=== PATIENT | male | born 1990 | race African-American/Black ===

== ENCOUNTER 2020-07-25 14:10 | Outpatient (REF) | payer OTHER, SELFPAY | END 2020-07-25 14:11 | disposition home or self-care (01) | LOC: HO.LAB 14:10 | PROVIDERS: PCP Internal Medicine Geriatric Medicine; Visit Provider Internal Medicine | DX: Z20.828 Contact with and (suspected) exposure to other viral communicable diseases (principal) | CPT/HCPCS: C9803; U0003 ==

== ENCOUNTER 2020-09-17 08:02 | Outpatient (REF) | payer OTHER, SELFPAY ==
--- NOTE | 2020-09-18 09:02 | MHC.AU.P13 ---
Adult Audiological Evaluation Date of Visit: 09/17/20 Quantitative Consultant Used: Not Applicable Reason for Appointment: Audiologic evaluation due to question of hearing loss, left ear poorer than right and difficulty understanding speech, particularly when background noise is present. Delilah reports he has some difficulty with attention and anxiety and wonders if these factors may increase his hearing trouble. He also experiences intermittent ear pain and blocked sensation, right ear greater than left. He has had 2 episodes of swelling and cyst in the ear canal which required drainage and seem related to throat infections. Delilah notes he has not been evaluated by an Direct Mail Coordinator. Does patient feel they have a hearing loss?: Yes If Yes, Which Ear?: Both Ears When Was Hearing Difficulty First Noticed?: 1-2 years Has hearing been tested previously?: No Hearing Handicap Inventory HHIE SCORE: 14 Based on HHIE score, patient has: Mild to moderate perceived hearing handicap Ear History: Recent Ear Pain: Both Ears Blocked/Full Sensation in Ear(s): Left Ear History of occupational noise exposure?: Yes: [employer]an History: History: No Medical History: Medical History: None reported Medication List: None Otoscopy: Right Ear: Unremarkable Left Ear: Unremarkable Tympanometry: Right Ear: Normal Middle Ear System (Type A) Left Ear: Normal Middle Ear System (Type A) Otoacoustic Emissions Frequency Range Used: 1.6-8 kHz Right Ear Results: Present Emissions Analysis: Present emissions suggest normal cochlear function Rules out peripheral hearing loss greater than a mild degree Left Ear Results: Present Emissions Analysis: Present emissions suggest normal cochlear function Rules out peripheral hearing loss greater than a mild degree Hearing Evaluation: Transducer(s) Used: Insert Earphones Bone Conduction Method: Conventional Audiometry Stimuli Used: Pure Tones Right Ear: Description of Hearing: Normal hearing thresholds at 250-8000 Hz Left Ear: Description of Hearing: Normal hearing thresholds at 250-8000 Hz Speech Recognition Threshold (SRT): Method Used: Monitored Live Voice Stimuli Used: Spondee Words Right Ear: 10 dB HL Left Ear: 10 dB HL Word Discrimination: Method: Recorded Lists Word Lists Used: NU-6 Right Ear: 100% at 50 dB HL Left Ear: 96% at 50 dB HL QuickSIN: Right Ear: 4 dB SNR Loss Mild degree of difficulty understanding speech with increasing levels of background noise Left Ear: 2 dB SNR Loss Within the normal limits. IT IS NOTED THE SCORE FOR THE RIGHT EAR MAY BE ELEVATED IT WAS THE FIRST EAR TO BE TESTED AND DELILAH REPORTS HE HAD MORE DIFFICULTY PAYING ATTENTION TO THE SENTENCES TO REPEAT. HE WAS MORE FAMILIAR WITH THE LISTENING TASK WHEN THE LEFT EAR WAS TESTED AND HE WAS ABLE TO PAY CLOSER ATTENTION TO THE LISTENING TASK. Comparison: Compared to the most recent evaluation: N/A Recommendations: Recommendations: No further audiological action is indicated at this time. Recommendations (Other): 1) Discussed that Delilah' peripheral hearing is normal for both ears; however, listening skills may be affected by reduced attention as well as emotional state. If Delilah is anxious, listening becomes more difficult. Delilah reports he has already planed to seek therapy for his attention and anxiety. 2) Discussed and provided a handout regarding Communication Strategies to use as needed to improve speech understanding. 3) Advise considering a consultation with an Direct Mail Coordinator for the history of throat and ear swelling, particularly if the problem occurs again. Diagnosis: Primary Diagnosis: H93.293 (Concern of) Abnormal Auditory Perception Secondary Diagnosis: Services Performed: Services Performed: Comprehensive Audiological Evaluation (CPT 14933) Diagnostic Otoacoustic Emissions (CPT 08966, 26+TC) Tympanometry (CPT 88679) Signature: Provider: Naima Stewart, CCC-A
== END 2020-09-17 08:03 | disposition home or self-care (01) ==
LOC: HO.SH 08:02
PROVIDERS: Visit Provider Physician Assistant
DX: H93.293 Other abnormal auditory perceptions, bilateral (principal)
CPT/HCPCS: 92557; 92567; 92588

== ENCOUNTER 2020-09-17 09:15 | Outpatient (REF) | payer OTHER, SELFPAY ==
[2020-09-17 09:59] LABS: Alanine Aminotransferase 36 U/L (0-40); Albumin Level 4.8 g/dL (3.5-5.0); Alkaline Phosphatase 66 U/L (39-117); Anion Gap 13 (12-20); Aspartate Amino Transferase 19 U/L (5-37); Bilirubin Total 0.9 mg/dL (0.0-1.0); Blood Urea Nitrogen 14 mg/dL (9-16); Calcium 9.7 mg/dL (8.4-10.2); Carbon Dioxide 30 mmol/L (22-29); Chloride 103 mmol/L (96-108); Estimated Glomerular Filt Rate > 60; Glucose Fasting 95 mg/dL (60-99); Potassium 4.5 mmol/l (3.3-5.1); Sodium 141 mmol/L (135-145); Total Protein 7.7 g/dL (6.5-8.0)
[2020-09-17 10:16] LABS: Estimated Average Glucose 103 mg/dL; Hemoglobin A1c % 5.2 %
[2020-09-17 10:23] LABS: TSH reflex Free T4 1.21 mIU/mL (0.32-4.0)
== END 2020-09-17 09:16 | disposition home or self-care (01) ==
LOC: HO.LAB 09:15
PROVIDERS: Visit Provider Physician Assistant
DX: Z13.1 Encounter for screening for diabetes mellitus (principal); Z13.29 Encounter for screening for other suspected endocrine disorder
CPT/HCPCS: 36415; 80053; 83036; 84443

== ENCOUNTER 2020-11-15 11:15 | Outpatient (REF) | payer OTHER, SELFPAY ==
--- NOTE | ~2020-11-15 | XR_ITS ---
EXAMINATION: XR CHEST CLINICAL INFORMATION: Chest pain COMPARISON: Chest 12/19/2008 TECHNIQUE: 2 views of the chest were obtained. FINDINGS: No significant abnormality is noted involving the heart, lungs, mediastinum, bony thorax or soft tissues. XR/XR chest 2V IMPRESSION: Unremarkable chest examination.
== END 2020-11-15 11:16 | disposition home or self-care (01) ==
LOC: HO.HMGCX 11:15
PROVIDERS: PCP Physician Assistant; Visit Provider Hospitalist
DX: R07.9 Chest pain, unspecified (principal)
CPT/HCPCS: 71046

== ENCOUNTER 2021-04-19 16:20 | Outpatient (REF) | payer OTHER, SELFPAY | END 2021-04-19 16:21 | disposition home or self-care (01) | LOC: HO.LNP 16:20 | PROVIDERS: Visit Provider Hospitalist | DX: Z20.822 Contact with and (suspected) exposure to COVID-19 (principal); B34.9 Viral infection, unspecified | CPT/HCPCS: U0003; U0005 ==

== ENCOUNTER 2022-01-29 08:56 | Outpatient (REF) | payer OTHER, SELFPAY ==
[2022-01-29 09:38] LABS: Hematocrit 43.6 % (42.0-52.0); Hemoglobin 14.9 g/dl (14.0-18.0); Mean Corpuscular HGB Conc 34.2 g/dl (31.0-36.0); Mean Corpuscular Hemoglobin 29.2 pg (27.0-33.0); Mean Corpuscular Volume 85.5 fL (80.0-98.0); Platelet Count 247 X10*3/uL (160-400); Red Cell Distribution Width 12.1 % (11.0-16.0)
[2022-01-29 10:13] LABS: Alanine Aminotransferase 41 U/L (0-40); Albumin Level 4.6 g/dL (3.5-5.0); Alkaline Phosphatase 60 U/L (39-117); Anion Gap 10 (12-20); Aspartate Amino Transferase 21 U/L (5-37); Bilirubin Total 0.7 mg/dL (0.0-1.0); Blood Urea Nitrogen 11 mg/dL (9-16); Calcium 9.5 mg/dL (8.4-10.2); Carbon Dioxide 29 mmol/L (22-29); Chloride 104 mmol/L (96-108); Cholesterol 204 mg/dL; Estimated Glomerular Filt Rate > 60; Glucose Fasting 92 mg/dL (60-99); HDL Cholesterol 54 mg/dL; LDL Cholesterol Calculated 134 mg/dl; Potassium 4.2 mmol/L (3.3-5.1); Sodium 139 mmol/L (135-145); Total Protein 7.3 g/dL (6.5-8.0); Triglycerides 83 mg/dL
== END 2022-01-29 08:57 | disposition home or self-care (01) ==
LOC: HO.LAB 08:56
PROVIDERS: PCP Physician Assistant; Visit Provider Physician Assistant
DX: Z13.1 Encounter for screening for diabetes mellitus (principal); Z13.29 Encounter for screening for other suspected endocrine disorder
CPT/HCPCS: 36415; 80053; 80061; 84443; 85027

== ENCOUNTER 2022-10-24 10:01 | Emergency (ER) | payer OTHER, SELFPAY ==
--- NOTE | ~2022-10-24 | XR_ITS ---
EXAMINATION: XR CHEST CLINICAL INFORMATION: Chest pain, high blood pressure. COMPARISON: 11/15/2020 chest radiographs. TECHNIQUE: 2 views of the chest were obtained. FINDINGS: No significant abnormality is noted involving the heart, lungs, mediastinum, bony thorax or soft tissues. XR/XR chest 2V IMPRESSION: No acute cardiopulmonary process.
--- NOTE | 2022-10-24 10:03 | ECG_ITS ---
Test Reason : CHEST PAIN Blood Pressure : / mmHG Vent. Rate : 096 BPM Atrial Rate : 096 BPM P-R Int : 158 ms QRS Dur : 092 ms QT Int : 332 ms P-R-T Axes : 045 013 026 degrees QTc Int : 419 ms Normal sinus rhythm Normal ECG When compared with ECG of 20-MAY-2011 14:29, Nonspecific T wave abnormality now evident in Inferior leads T wave amplitude has decreased in Lateral leads Referred By: Generic ED Physician Electronically Signed By:LISA DORAN MD
[2022-10-24 10:12] VITALS: BP 148/95; PULSE 91; RESP 16; TEMP 36.1; O2SAT 98; BMI 30.8
[2022-10-24 10:30] VITALS: BP 146/78; PULSE 92; RESP 15; TEMP 36.8; O2SAT 99
[2022-10-24 10:41] LABS: MANUAL DIFF FLAG NO
[2022-10-24 10:44] LABS: Basophils Absolute Auto 0.1 X10*3/uL (0.0-0.2); Basophils Percent Auto 0.7 % (0-2); Eosinophils Absolute Auto 0.2 X10*3/uL (0.0-0.4); Eosinophils Percent Auto 2.9 % (0-4); Hematocrit 43.8 % (42.0-52.0); Hemoglobin 15.4 g/dl (14.0-18.0); Imm Gran Abs Auto 0.03 X10*3/uL (0.00-0.03); Imm Gran Pct Auto 0.4 % (0.0-0.4); Lymphocytes Absolute Auto 1.8 X10*3/uL (1.2-4.9); Lymphocytes Percent Auto 23.9 % (20-40); Mean Corpuscular HGB Conc 35.2 g/dl (31.0-36.0); Mean Corpuscular Hemoglobin 29.6 pg (27.0-33.0); Mean Corpuscular Volume 84.2 fL (80.0-98.0); Mean Platelet Volume 9.7 fL (9.4-12.4); Monocytes Absolute Auto 0.7 X10*3/uL (0.1-1.2); Monocytes Percent Auto 9.2 % (2-11); Neutrophils Absolute Auto 4.7 x10*3/uL (2.0-8.3); Neutrophils Percent Auto 62.9 % (45-73); Platelet Count 269 X10*3/uL (160-400); Red Cell Distribution Width 12.4 % (11.0-16.0); White Blood Count 7.5 X10*3/uL (4.8-10.8)
--- NOTE | 2022-10-24 10:57 | ED.CHESTPAIN ---
HPI - Chest Pain General Chief Complaint: Chest Pain Stated Complaint: chest pain, high bp Time Seen by Provider: 10/24/22 10:33 Source: patient Mode of arrival: ambulatory History of Present Illness HPI narrative: 32-year-old male with no significant past medical history presenting to the ED complaining of intermittent sharp chest pain x2 weeks with elevated BP on home machine. States woke up this morning with chest pain, blood pressure noted to be 170s/130s. Reports intermittent lightheadedness at work. Denies symptoms at present. Denies headache, vision change/loss, SOB, abdominal pain, nausea/vomiting, pedal edema, recent travel. Denies history of hypertension, not currently on any medications MD complaint: chest pain Related Data Home Medications Medication Instructions Recorded Confirmed No Known Home Meds 04/01/22 04/01/22 Allergies Allergy/AdvReac Type Severity Reaction Status Date / Time No Known Allergies Allergy Verified 04/01/22 11:31 [No Known Allergies*] Review of Systems Review of Systems: Constitutional: No Fever, No Chills, No Fatigue, No Malaise ENT/Mouth: No Ear Pain, No Nasal Congestion, No sore throat, No Rhinorrhea, No Swallowing Difficulty Eyes: No Eye Pain, No Swelling, No Redness, No Vision Changes Cardiovascular: + intermittent Chest Pain, No SOB,No Edema, No Palpitations Respiratory: No Cough, No Sputum, No Dyspnea Gastrointestinal: No Nausea, No Vomiting, No Diarrhea, No Constipation, No Abdominal pain Genitourinary: No Dysuria, No Urinary Frequency, No Hematuria, No Flank Pain Musculoskeletal: No joint pain, No Myalgias, No Joint Swelling Skin: No Skin Lesions, No rash Neuro: No Weakness, No Loss of Consciousness, + intermittent lightheadedness, No Headache Yes all other systems are reviewed and are negative Constitutional: Constitutional: Reports as per [facility] Past Medical History Attestation statement: The following information was validated with the patient. 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 - [employer] Cognitive needs: No Hearing needs: No Vision needs: Yes Physical Exam Vital Signs: Vital Signs: Last Vital Signs Temp 98.2 F 10/24/22 10:30 Pulse 71 10/24/22 14:33 Resp 13 10/24/22 14:33 BP 133/86 10/24/22 14:33 Pulse Ox 99 10/24/22 14:33 O2 Del Method 10/24/22 14:33 BMI result Body Mass Index 30.8 Const: General: cooperative, healthy appearing and no acute distress Orientation/consciousness: patient oriented x3 Limitations: no limitations HEENT: Head: Yes normal to inspection and Yes atraumatic Ears: hearing grossly normal bilaterally General nose exam: Normal external nose present Face and sinus: Yes normal facial exam Eyes: General: appearance normal, both eyes and all related structures EOM: EOMs intact bilaterally Neck: Neck: Yes normal visual inspection and Yes no meningeal signs Resp: Effort & Inspection: normal respiratory effort and no respiratory distress Auscultation: clear to auscultation bilaterally and no wheezes Cardio: Rate: regular rate Heart sounds: S1 normal heart sound present and S2 normal heart sound present GI: Inspection: Yes normal to inspection Palpation (GI): Soft to palpation, nontender, no guarding and not rigid : General: Yes no CVA tenderness Back/Spine/Pelvis: Back: no CVA tenderness Skin: Rashes: no rashes Wounds: no wounds Neuro: General: patient oriented x3, tone normal and no meningeal signs Gait exam (Neuro): Normal gait present Extrem: General: Yes normal to inspection, Yes no pedal edema and Yes no calf tenderness Course Course Course Narrative: -labs reassuring. Troponin x2 negative -CXR unremarkable Results discussed with patient including worrisome signs and symptoms and strict return precautions, and when to return to the emergency department. They verbalized understanding and feel safe for discharge at this time. Medical Decision Making Medical Decision Making MDM Narrative: 32-year-old male with no significant past medical history presenting to the ED complaining of intermittent sharp chest pain x2 weeks with elevated BP on home machine. On exam vital signs stable, blood pressure 148/95 on arrival. asymptomatic at present. Lungs CTA, no pedal edema/calf tenderness. Symptoms atypical for ACS/PE. Will rule out arrhythmia or thyroid dysfunction. Possible anxiety. Lower suspicion for infectious etiology Plan: EKG, labs, CXR, orthostatics, re-evaluate Please refer to course for remaining clinical decision making, interpretation of labs/imaging results, and discussions with consultants and/or family members. Differential Diagnosis Differential Diagnoses: The differential diagnosis associated with the presentation includes As above Lab Data MDM Lab Attestation statement: I reviewed the patient's lab results. 10/24/22 10:38 10/24/22 10:38 Labs: Lab Results 10/24/22 10/24/22 10/24/22 Range/Units 10:38 10:38 10:38 WBC 7.5 (4.8-10.8) X10*3/uL RBC 5.20 (4.60-5.80) X10*6/uL Hgb 15.4 (14.0-18.0) g/dl Hct 43.8 (42.0-52.0) % MCV 84.2 (80.0-98.0) fL MCH 29.6 (27.0-33.0) pg MCHC 35.2 (31.0-36.0) g/dl RDW 12.4 (11.0-16.0) % Plt Count 269 (160-400) X10*3/uL MPV 9.7 (9.4-12.4) fL Immature Gran % (Auto) 0.4 (0.0-0.4) % Neut % (Auto) 62.9 (45-73) % Lymph % (Auto) 23.9 (20-40) % [place] % (Auto) 9.2 (2-11) % Eos % (Auto) 2.9 (0-4) % Baso % (Auto) 0.7 (0-2) % Lymph # (Auto) 1.8 (1.2-4.9) X10*3/uL [place] # (Auto) 0.7 (0.1-1.2) X10*3/uL Eos # (Auto) 0.2 (0.0-0.4) X10*3/uL Baso # (Auto) 0.1 (0.0-0.2) X10*3/uL Abs Immat Gran (auto) 0.03 (0.00-0.03) X10*3/uL Absolute Neuts (auto) 4.7 (2.0-8.3) x10*3/uL Absolute Nucleated RBC 0.000 (0.0-0.012) X10*3/uL Nucleated RBC % (auto) 0.0 (0.0-0.2) /100WBC Sodium 140 (135-145) mmol/L Potassium 3.8 (3.3-5.1) mmol/L Chloride 106 (96-108) mmol/L Carbon Dioxide 25 (22-29) mmol/L Anion Gap 13 (12-20) BUN 13 (9-16) mg/dL Creatinine 0.85 (0.5-1.4) mg/dL Estim Creat Clear Calc 147.7 Estimated GFR > 60 Random Glucose 100 (60-115) mg/dL Calcium 9.2 (8.4-10.2) mg/dL Total Bilirubin 0.5 (0.0-1.0) mg/dL AST 32 (5-37) U/L ALT 64 H (0-40) U/L Alkaline Phosphatase 72 (39-117) U/L Troponin I High Sens 3.8 (<3.5-35.0) ng/L Total Protein 7.3 (6.5-8.0) g/dL Albumin 4.4 (3.5-5.0) g/dL TSH 1.32 (0.32-4.0) uIU/mL 10/24/22 Range/Units 13:28 WBC (4.8-10.8) X10*3/uL RBC (4.60-5.80) X10*6/uL Hgb (14.0-18.0) g/dl Hct (42.0-52.0) % MCV (80.0-98.0) fL MCH (27.0-33.0) pg MCHC (31.0-36.0) g/dl RDW (11.0-16.0) % Plt Count (160-400) X10*3/uL MPV (9.4-12.4) fL Immature Gran % (Auto) (0.0-0.4) % Neut % (Auto) (45-73) % Lymph % (Auto) (20-40) % [place] % (Auto) (2-11) % Eos % (Auto) (0-4) % Baso % (Auto) (0-2) % Lymph # (Auto) (1.2-4.9) X10*3/uL [place] # (Auto) (0.1-1.2) X10*3/uL Eos # (Auto) (0.0-0.4) X10*3/uL Baso # (Auto) (0.0-0.2) X10*3/uL Abs Immat Gran (auto) (0.00-0.03) X10*3/uL Absolute Neuts (auto) (2.0-8.3) x10*3/uL Absolute Nucleated RBC (0.0-0.012) X10*3/uL Nucleated RBC % (auto) (0.0-0.2) /100WBC Sodium (135-145) mmol/L Potassium (3.3-5.1) mmol/L Chloride (96-108) mmol/L Carbon Dioxide (22-29) mmol/L Anion Gap (12-20) BUN (9-16) mg/dL Creatinine (0.5-1.4) mg/dL Estim Creat Clear Calc Estimated GFR Random Glucose (60-115) mg/dL Calcium (8.4-10.2) mg/dL Total Bilirubin (0.0-1.0) mg/dL AST (5-37) U/L ALT (0-40) U/L Alkaline Phosphatase (39-117) U/L Troponin I High Sens 3.6 (<3.5-35.0) ng/L Total Protein (6.5-8.0) g/dL Albumin (3.5-5.0) g/dL TSH (0.32-4.0) uIU/mL Independent Interpretation I performed an independent interpretation of an: EKG Interpretation: My interpretation EKG normal sinus rhythm at rate 96. CT interval 158. QTC 419. No STEMI. Radiology Impression Discussion of test interpretation with radiology: I have reviewed the radiologist's reading. External Record Review External record reviewed: Office record and Outpatient record Discharge Plan Discharge Clinical Impression: Atypical chest pain Patient Disposition: Home, Self-Care Instructions: Chest Pain (DC) Additional Instructions: Your blood work was reassuring. x-ray was unremarkable Please follow-up with your primary care doctor and Cardiology Continue home prescribed medications Continue to monitor your blood pressure at home If you develop constant/worsening chest pain, shortness of breath, persistent high blood pressure/headache return to the ED Prescriptions: No Action No Known Home Meds [place] [facility] [place] [place] Group[place] - 1 week Anmol Hudson PA-C [Primary Care Provider] - 2 days Stand Alone Forms: Work/School Release Interventions: ED Discharge Assessment Last Done: 10/24/22 14:33 Discharge Date/Time: 10/24/22 14:34
[2022-10-24 11:01] LABS: Alanine Aminotransferase 64 U/L (0-40); Albumin Level 4.4 g/dL (3.5-5.0); Alkaline Phosphatase 72 U/L (39-117); Anion Gap 13 (12-20); Aspartate Amino Transferase 32 U/L (5-37); Bilirubin Total 0.5 mg/dL (0.0-1.0); Blood Urea Nitrogen 13 mg/dL (9-16); Calcium 9.2 mg/dL (8.4-10.2); Carbon Dioxide 25 mmol/L (22-29); Chloride 106 mmol/L (96-108); Creatinine Clr Calc Pharmacy 147.7; Estimated Glomerular Filt Rate > 60; Glucose Random 100 mg/dL (60-115); Potassium 3.8 mmol/L (3.3-5.1); Sodium 140 mmol/L (135-145); Total Protein 7.3 g/dL (6.5-8.0)
[2022-10-24 11:11] LABS: Troponin-I High Sensitivity 3.8 ng/L (<3.5-35.0)
[2022-10-24 12:11] LABS: TSH reflex Free T4 1.32 uIU/mL (0.32-4.0)
[2022-10-24 12:40] VITALS: BP 127/72; PULSE 75; RESP 19; O2SAT 100
[2022-10-24 12:46] VITALS: BP 116/73; PULSE 66
[2022-10-24 12:47] VITALS: BP 132/84; BP 139/91; PULSE 63; PULSE 66
[2022-10-24 14:07] LABS: Troponin-I High Sensitivity 3.6 ng/L (<3.5-35.0)
[2022-10-24 14:33] VITALS: BP 133/86; PULSE 71; RESP 13; O2SAT 99
== END 2022-10-24 14:34 | disposition home or self-care (01) ==
PROVIDERS: Physician Assistant; Emergency Provider Emergency Medicine Emergency Medical Services; PCP Physician Assistant
DX: R07.89 Other chest pain (principal); R03.0 Elevated blood-pressure reading, without diagnosis of hypertension; Z79.899 Other long term (current) drug therapy
CPT/HCPCS: 36415; 71046; 80053; 84443; 84484; 85025; 93005; 99283; 99284

== ENCOUNTER 2023-05-04 10:37 | Outpatient (AMB) | payer OTHER, SELFPAY ==
--- NOTE | 2023-05-04 10:56 | AM.OFFWIN_ITS ---
Intake Vital Signs 05/04/23 11:09 Height 5 ft 11 in Weight 232 lb BMI 32.4 BP 132/72 Blood Pressure Location Rt brachial Position Sitting Pulse 88 Pulse Source Pulse Oximeter Temp 97.2 F Temp Source Temporal Artery Scan Pulse Oximetry (%) 98 Intake Visit Reasons: EST/ear infections [phone] Intake Note: pt is here for possible ear infection Patient Tobacco Use Status: Never used Tobacco Allergies No Known Allergies [No Known Allergies*] Allergy (Verified 05/04/23 11:10) Do you need a note to return to daycare/school/sports/work: Yes HPI EST/ear infections [phone] HPI Details 33-year-old male patient presents today with right ear pain since last week. Denies any fever or chills. Denies any other URI symptoms. Had an ear infection last year, this feels similar. 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 - [employer] Cognitive needs: No Hearing needs: No Vision needs: Yes (glasses) Review of Systems Const All systems reviewed & are unremarkable except as noted in HPI and below Physical Exam Vital Signs: Last Vital Signs Temp 97.2 F 05/04/23 11:09 Pulse 88 05/04/23 11:09 BP 132/72 05/04/23 11:09 Pulse Ox 98 05/04/23 11:09 BMI result Body Mass Index 32.4 Const General: cooperative, healthy appearing, comfortable and no acute distress HEENT Head: Yes normal to inspection Ears: hearing grossly normal bilaterally, external ear abnormal (erythema) auricular tenderness on the right and pain with movement of external ear on the right and TM abnormal (right TM Bulging, erythematous, purulent effusion) Neck Neck: Yes no lymphadenopathy Resp Effort & Inspection: normal respiratory effort and able to speak in complete sentences Auscultation: clear to auscultation bilaterally Skin General skin exam: no rashes or lesions noted Extrem General: Yes capillary refill normal and Yes no clubbing, cyanosis or edema Psych Appearance: grossly normal Mental Status: mental status grossly normal Speech and movement: Normal speech and movement present Assessment & Plan Assessment & Plan (1) Right otitis media with effusion: Code(s): H65.91 - Unspecified nonsuppurative otitis media, right ear Plan: Will start patient on Augmentin for right OM, and also given effusion and erythema of ear canal, will start on Cipro/dexa ear drops. We reviewed indications, use, possible side effects of medications. Advised to complete full course and return to the clinic or PCP if he does not resolve with treatment, or if new symptoms occur. He agrees to plan. (2) Otitis externa of right ear: Code(s): H60.91 - Unspecified otitis externa, right ear Qualifiers: Otitis externa type: unspecified type Chronicity: acute Qualified Code(s): H60.501 - Unspecified acute noninfective otitis externa, right ear Medications: New amoxicillin-pot clavulanate 875-125 mg 1 tab PO BID 7 days 14 tabs 0RF H65.91 - Unspecified nonsuppurative otitis media, right ear ciprofloxacin-dexamethasone 0.3-0.1 % 4 drps otic (ear) right BID 7 days 7.5 mL 0RF H60.91 - Unspecified otitis externa, right ear Coding Level of Care Code Est Pt Level 3 (63808) Diagnoses Right otitis media with effusion H65.91 Acute otitis externa of right ear, unspecified type H60.501 Otitis externa type: unspecified type Chronicity: acute
[2023-05-04 11:09] VITALS: BP 132/72; PULSE 88; TEMP 36.2; O2SAT 98; BMI 32.4
== END 2023-05-04 11:28 | disposition home or self-care (01) ==
PROVIDERS: PCP Physician Assistant; Visit Provider Nurse Practitioner Family
DX: H65.91 Unspecified nonsuppurative otitis media, right ear (principal); H60.501 Unspecified acute noninfective otitis externa, right ear
CPT/HCPCS: 99213

== ENCOUNTER 2023-06-15 09:52 | Outpatient (AMB) | payer OTHER, SELFPAY ==
[2023-06-15 09:54] VITALS: BP 140/90; PULSE 64; RESP 16; O2SAT 99; BMI 31.7
--- NOTE | 2023-06-15 09:54 | A.OFFPC_ITS ---
Vital Signs 3 06/15/23 09:54 Height 5 ft 11 in Weight 227 lb 8 oz BMI 31.7 BP 140/90 H Blood Pressure Location Lt brachial Position Sitting Respiration 16 Pulse 64 Pulse Source Pulse Oximeter Pulse Oximetry (%) 99 Oxygen Delivery Method Room Air Intake Visit Reasons: Lower Right Side Back Pain Intake Note: Pt is here for lower right side (strain)back pain for more than a month. 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 Accompanied by: Self / Same As Patient Allergies No Known Allergies [No Known Allergies*] Allergy (Verified 06/15/23 10:17) Medication List - Last Reconciled 06/15/23 by Anmol Hudson PA-C No Known Home Meds Tobacco use date assessed: 11/06/22 Dental Screening Dental Screen Date: 06/15/23 Did you have a dental visit in the last 12 months?: Yes Did you have a dental problem in the last 6 months where you did not have access to dental care?: No Was dental information given to patient?: Patient has dentist HPI Lower Right Side Back Pain 2 HPI0 Details Patient is a 33-year-old male here today for problem visit. Patient reports having lower right-sided back pain over the last month. He reports having an abscess formation in the area of his pain in the past that was surgically removed. He reports his pain in this right flank areas worse when sitting in his car driving. Has been using [id number]-kjp-[id number] pain medication without much relief. He also reports having tailbone pain which has been a chronic condition for him. Does use muscle relaxers on a p.r.n. basis which does help. He is willing further evaluation with x-rays into physical therapy. No reported recent trauma to his lower back or pelvis. 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 Leonardo Rutledge, Constance Lynch, Andrea Watters and colleagues, with an educational saturnino from [employer]. Review of Systems Const Denies headache(s) Eyes Denies loss of vision ENT Denies vertigo, Denies dizziness, Denies headache(s) and Denies sore throat Card Reports chest pain, Denies leg edema and Denies lightheadedness Resp Denies cough, Denies hemoptysis and Denies wheezing GI Denies abdominal pain, Denies melena, Denies constipation, Denies diarrhea and Denies vomiting Denies dysuria, Denies urinary frequency and Denies urinary urgency Musc Reports back pain, Denies arthralgias, Denies joint swelling, Denies numbness and Denies tingling Neuro Denies Abnormal speech present, Denies behavioral changes, Denies vertigo, Denies dizziness, Denies headache(s), Denies loss of vision, Denies memory loss, Denies numbness and Denies tingling Psych Denies anxiety, Denies behavioral changes, Denies depression, Denies memory loss and Denies panic attacks Romeo/Lymph Denies easy bleeding and Denies easy bruising Aller/Immun Denies wheezing Physical exam (Primary Care) Vital Signs: Last Vital Signs Pulse 64 06/15/23 09:54 Resp 16 06/15/23 09:54 BP 140/90 H 06/15/23 09:54 Pulse Ox 99 06/15/23 09:54 Oxygen Delivery Method Room Air 06/15/23 09:54 BMI result Body Mass Index 31.7 Tobacco/Smoking Status: Tobacco use Status Tobacco use date assessed 11/06/22 06/15/23 09:54 Patient Tobacco Use Status Never used Tobacco 06/15/23 09:54 e-Cigarette/Vaping Use Never Used 06/15/23 09:54 Thrive Assessment: Date of Thrive Assessment Date Thrive assessed 01/21/23 06/15/23 09:54 Const General: healthy appearing, no acute distress, alert and awake Nutritional Appearance: well nourished Orientation/consciousness: oriented to person, oriented to place and oriented to time HENMT Ears: TM's normal bilaterally General nose exam: Normal nasal mucous membranes and turbinates present Eyes Conjunctivae: conjunctivae normal Sclerae: sclerae normal Pupils: Equal, round and reactive pupils present Neck Neck: Yes no lymphadenopathy and Yes no JVD Thyroid: Thyroid normal Carotids: no bruits Resp Effort & Inspection: normal respiratory effort and not tachypneic Auscultation: no crackles, no rales, no rhonchi and no wheezes Cardio Rate: regular rate Rhythm: regular rhythm Heart sounds: no murmurs and normal S1 and S2 GI Palpation (GI): Soft to palpation, nontender, no hepatomegaly and no splenomegaly Auscultation: normal bowel sounds Back/Spine/Pelvis Back/spine/pelvis image: 2 1. SMALL AREA OF WELL-HEALED SURGICAL SCAR. NO SURROUNDING ERYTHEMA OR DRAINAGE. DOES HAVE SMALL PALPABLE LUMP ? SCAR TISSUE FORMATION Skin General skin exam: no rashes or lesions noted and dry skin Neuro General: oriented to person, oriented to place and oriented to time Cranial nerves: Yes Equal, round and reactive pupils present Speech: No Abnormal speech present Gait exam (Neuro): Normal gait present Motor exam (neuro): no tremor noted Extrem Right upper extremity: full ROM Left upper extremity: full ROM Right lower extremity: full ROM; no edema Left lower extremity: full ROM; no edema Psych Mental Status: mental status grossly normal Speech and movement: Normal speech and movement present Affect: normal affect Attitude: cooperative Thought process: Normal thought process present Office Procedures Flu Questionnaire Does the patient have a severe egg allergy?: No Does the patient have severe life threatening allergies?: No Does the patient have a fever or illness today?: No Has the patient ever had Guillain-Edson Syndrome?: No Has the patient ever had any past reaction to a flu shot?: No Immunizations flu vacc [id number] 6mos up(PF) 60 mcg(15 mcgx4)/0.5 mL IM syringe Performing Provider: Anmol Hudson PA-C Performing Location: [facility] Administered by: CECILE Smith on 06/15/23 10:05 2 Dose Route Admin Location Dispensed Lot Number Expiration Date [facility] Power 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 Likely scar tissue from the surgical procedure . Will get ultrasound of the area to evaluate for any mass or re-formation of abscess. (2) Coxalgia: Code(s): M25.559 - Pain in unspecified hip Qualifiers: Laterality: bilateral Qualified Code(s): M25.551 - Pain in right hip; M25.552 - Pain in left hip Plan: Reports a chronic history of lower tailbone pain. Will get x-ray this region. Will likely benefit from physical therapy. Will use muscle relaxer as needed for pain. Orders: Orders 2 XR sacroiliac joint min 3V Today M25.559 - Pain in unspecified hip Influenza [id number] Immunization Today Z23 - Encounter for immunization US extremity nonvascular snyder Today M25.559 - Pain in unspecified hip, R19.00 - Intra-abdominal and pelvic swelling, mass and lump, unspecified site PT Evaluation and Treatment Today M25.559 - Pain in unspecified hip Medications: New 2 cyclobenzaprine 10 mg PO BEDTIME 15 days PRN 15 tabs 1RF muscle spasm M25.559 - Pain in unspecified hip Coding Level of Care Code Est Pt Level 4 (72549) Diagnoses Right flank mass R19.00 Pain of both hip joints M25.551; M25.552 Laterality: bilateral
== END 2023-06-15 10:32 | disposition home or self-care (01) ==
PROVIDERS: PCP Physician Assistant; Visit Provider Physician Assistant
DX: R19.00 Intra-abdominal and pelvic swelling, mass and lump, unspecified site (principal); M25.551 Pain in right hip; M25.552 Pain in left hip; Z23 Encounter for immunization
CPT/HCPCS: 90471; 90686; 99214

== ENCOUNTER 2023-07-07 13:00 | Outpatient (REF) | payer OTHER, SELFPAY ==
--- NOTE | ~2023-07-07 | US_ITS ---
Examination: Follow-up abscess COMPARISON: None TECHNIQUE: Targeted sonographic evaluation of the soft tissues of right flank posterior FINDINGS: Targeted sonographic evaluation of soft tissues performed and revealed no collections, masses, shadowing and the area pointed by patient has a previous scan abscess. US/US extremity nonvascular snyder IMPRESSION: Negative
== END 2023-07-07 13:01 | disposition home or self-care (01) ==
LOC: HO.US 13:00
PROVIDERS: PCP Physician Assistant; Visit Provider Physician Assistant
DX: R19.00 Intra-abdominal and pelvic swelling, mass and lump, unspecified site (principal)
CPT/HCPCS: 76882

== ENCOUNTER 2023-10-29 11:31 | Outpatient (AMB) | payer OTHER, SELFPAY ==
[2023-10-29 12:57] VITALS: BP 160/80; PULSE 77; TEMP 36.1; O2SAT 97; BMI 31.2
--- NOTE | 2023-10-29 12:57 | AM.OFFWIN_ITS ---
Intake Vital Signs 10/29/23 12:57 Height 5 ft 11 in Weight 224 lb BMI 31.2 BP 160/80 H Blood Pressure Location Lt brachial Position Sitting Pulse 77 Pulse Source Pulse Oximeter Temp 97.0 F Temp Source Temporal Artery Scan Pulse Oximetry (%) 97 Oxygen Delivery Method Room Air Intake Visit Reasons: EST/left shoulder pain X 2 weeks ([phone]) Intake Note: pt is her today for lft shoulder pain started 2 weeks ago Patient Tobacco Use Status: Never used Tobacco Allergies No Known Allergies [No Known Allergies*] Allergy (Verified 10/29/23 13:01) Do you need a note to return to daycare/school/sports/work: No HPI HPI Comments History of Present Illness Details 33 y/o female who presents to walk in [facility] with c/o left shoulder pain x 2 weeks. Pt also c/o left eat pain since this morning. 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 - [employer] Cognitive needs: No Hearing needs: No Vision needs: Yes (glasses) Review of Systems Const All systems reviewed & are unremarkable except as noted in HPI and below Physical Exam Vital Signs: Last Vital Signs Temp 97.0 F 10/29/23 12:57 Pulse 77 10/29/23 12:57 BP 160/80 H 10/29/23 12:57 Pulse Ox 97 10/29/23 12:57 Oxygen Delivery Method Room Air 10/29/23 12:57 BMI result Body Mass Index 31.2 Const General: comfortable and no acute distress Orientation/consciousness: patient oriented x3 HEENT Head: Yes normocephalic Ears: external ears normal and TM's normal bilaterally Neuro General: patient oriented x3, gait normal and no focal motor deficits Motor exam (neuro): 5/5 motor strength present throughout Extrem Left upper extremity: normal to inspection, full ROM and shoulder/upper arm Details: tenderness Location: of the proximal humerus, normal ROM and crepitus (Crackling noise with movement); no swelling and no unsual warmth Psych Speech and movement: Normal speech and movement present Assessment & Plan Assessment & Plan (1) Left shoulder pain: Code(s): M25.512 - Pain in left shoulder Qualifiers: Chronicity: acute Qualified Code(s): M25.512 - Pain in left shoulder Plan: - Ibuprofen for pain relief - Rest joint - Ice Hot - Xray to r/o Fx Orders: Orders XR shoulder LT min 2V Today M25.512 - Pain in left shoulder Medications: New ibuprofen 600 mg PO Q6H PRN 30 tabs 0RF pain M25.512 - Pain in left shoulder Coding Level of Care Code Est Pt Level 3 (28239) Diagnoses Acute pain of left shoulder M25.512 Chronicity: acute Time Spent (min) 15
== END 2023-10-29 14:27 | disposition home or self-care (01) ==
PROVIDERS: PCP Physician Assistant; Visit Provider Nurse Practitioner Family
DX: M25.512 Pain in left shoulder (principal)
CPT/HCPCS: 99213

== ENCOUNTER 2023-10-29 13:20 | Outpatient (REF) | payer OTHER, SELFPAY ==
--- NOTE | ~2023-10-29 | XR_ITS ---
EXAMINATION: XR SHOULDER, LEFT CLINICAL INFORMATION: Left shoulder pain x2 weeks. COMPARISON: None available. TECHNIQUE: AP external rotation, Grashey, scapular Y, and axillary views of the left shoulder. FINDINGS: Glenohumeral and acromioclavicular alignment is anatomic with normal joint space. No displaced fracture or dislocation. No abnormal soft tissue calcifications. XR/XR shoulder LT min 2V IMPRESSION: No acute abnormality.
== END 2023-10-29 13:21 | disposition home or self-care (01) ==
LOC: HO.HMGCX 13:20
PROVIDERS: PCP Physician Assistant; Visit Provider Nurse Practitioner Family
DX: M25.512 Pain in left shoulder (principal)
CPT/HCPCS: 73030

== ENCOUNTER 2023-11-23 10:57 | Outpatient (AMB) | payer OTHER, SELFPAY ==
[2023-11-23 10:58] VITALS: BP 124/72; PULSE 90; O2SAT 99; BMI 30.5
--- NOTE | 2023-11-23 10:58 | MHC.PC.OV ---
Vital Signs 11/23/23 10:58 Height 5 ft 11 in Weight 219 lb BMI 30.5 BP 124/72 Blood Pressure Location Lt brachial Position Sitting Pulse 90 Pulse Source Pulse Oximeter Pulse Oximetry (%) 99 Oxygen Delivery Method Room Air Intake Visit Reasons: left ear pain Intake Note: Pt is here for left ear pain for the past two weeks. 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 He reports he has been having left ear pain over the last 2 weeks. Reports he did have COVID 2 weeks ago. He has since been having left ear congestion and mild pain. Has tried etka-pbv-xiordby cough cold medications without much relief of his left ear pain. Also reports he continues to have right flank pain. X-rays without any significant findings. He does report the pain in his right flank is very localized and only bothers him when palpated. 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 1. Little interest or pleasure in doing things: not at all 2. Feeling down, depressed, or hopeless: not at all 3. Trouble falling or staying asleep, or sleeping too much: not at all 4. Feeling tired or having little energy: not at all 5. Poor appetite or overeating: not at all 6. Feeling bad about yourself - or that you are a failure or have let yourself or your family down: not at all 7. Trouble concentrating on things, such as reading the newspaper or watching television: not at all 8. Moving or speaking so slowly that other people could have noticed. Or the opposite - being so fidgety or restless that you have been moving around a lot more than usual: not at all 9. Thoughts that you would be better off or of hurting yourself in some way: not at all Total score: 0 Depression Screening Interpretation: Negative Depression Screening Done: Yes 43702 - PHQ-9 Billing: Yes Source: Developed by Drs. Leonardo Rutledge, Constance Lynch, Andrea Watters and colleagues, with an educational saturnino from [employer]. Thrive Questionnaire Date Thrive assessed: 11/23/23 I am a: Patient What is your living situation today?: I have a steady place to live Within the past 12 months, did the food you bought not last and you didn't have the money to get more?: Never true Within the past 12 months, did you worry whether your food would run out before you got money to buy more?: Never true Do you have trouble paying for medicines?: No Do you have trouble getting transportation to medical appointments?: No Do you have trouble paying your heating and electricity bill?: No Do you have trouble taking care of your child, family member or friend?: No Do you have trouble with day-to-day activities such as bathing, preparing meals, shopping, managing finances, etc.?: No Are you currently unemployed and looking for a job?: No Are you interested in more education?: No Please select the resources that you would like help with: None Currently or been in a relationship where the following occur: no concerns reported THRIVE Score: 0 AUDIT C Alcohol Use Questionnaire (AUDIT-C) 1. How often do you have a drink containing alcohol?: Never 3. How often do you have six or more drinks on one occasion?: Never Total Score: 0 CORETTA-7 AMB Questionnaire CORETTA-7 Date CORETTA - 7 assessed: 11/23/23 Feeling nervous, anxious, or on edge: 0 = Not at all Not being able to stop or control worryin = Not at all Worrying too much about different things: 0 = Not at all Trouble relaxin = Not at all Being so restless that it is hard to sit still: 0 = Not at all Becoming easily annoyed or irritable: 0 = Not at all Feeling afraid as if something awful might happen: 0 = Not at all Total CORETTA-7 score (0-4 normal; 5-9 mild; 10-14 moderate; 15-21 severe): 0 Source: Developed by Drs. Leonardo Rutledge, Constance Lynch, Andrea Watters and colleagues, with an educational saturnino from [employer]. CORETTA-7 Assessment Billing CORTETA-7 Assessment Tool: CORETTA-7 Assessment 69278 Review of Systems Const Denies headache(s) Eyes Denies loss of vision ENT Denies vertigo, Denies dizziness, Denies headache(s) and Denies sore throat Card Denies chest pain, Denies leg edema and Denies lightheadedness Resp Denies cough, Denies hemoptysis and Denies wheezing GI Denies abdominal pain, Denies melena, Denies constipation, Denies diarrhea and Denies vomiting Denies dysuria, Denies urinary frequency and Denies urinary urgency Musc Denies arthralgias, Denies joint swelling, Denies numbness and Denies tingling Neuro Denies Abnormal speech present, Denies behavioral changes, Denies vertigo, Denies dizziness, Denies headache(s), Denies loss of vision, Denies memory loss, Denies numbness and Denies tingling Psych Denies anxiety, Denies behavioral changes, Denies depression, Denies memory loss and Denies panic attacks Romeo/Lymph Denies easy bleeding and Denies easy bruising Aller/Immun Denies wheezing Physical exam (Primary Care) Vital Signs: Last Vital Signs Pulse 90 11/23/23 10:58 BP 124/72 04/01/24 10:58 Pulse Ox 99 11/23/23 10:58 Oxygen Delivery Method Room Air 11/23/23 10:58 BMI result Body Mass Index 30.5 Tobacco/Smoking Status: Tobacco use Status Tobacco use date assessed 11/23/23 11/23/23 11:00 Patient Tobacco Use Status Never used Tobacco 11/23/23 11:00 e-Cigarette/Vaping Use Never Used 11/23/23 11:00 PHQ-9: PHQ-9 Score PHQ-9: Total score 0 11/23/23 11:10 Depression Screening Interpretation: Negative Thrive Assessment: Date of Thrive Assessment Date Thrive assessed 11/23/23 11/23/23 11:10 Currently or been in a relationship where the following occur: no concerns reported Const General: healthy appearing, no acute distress, alert and awake Nutritional Appearance: well nourished Orientation/consciousness: oriented to person, oriented to place and oriented to time HENMT Other: LEFT EAR: TYMPANIC MEMBRANE ERYTHEMATOUS AND BULGING. Ears: TM's normal bilaterally General nose exam: Normal nasal mucous membranes and turbinates present Eyes Conjunctivae: conjunctivae normal Sclerae: sclerae normal Pupils: Equal, round and reactive pupils present Neck Neck: Yes no lymphadenopathy and Yes no JVD Thyroid: Thyroid normal Carotids: no bruits Resp Effort & Inspection: normal respiratory effort and not tachypneic Auscultation: no crackles, no rales, no rhonchi and no wheezes Cardio Rate: regular rate Rhythm: regular rhythm Heart sounds: no murmurs and normal S1 and S2 GI Palpation (GI): Soft to palpation, nontender, no hepatomegaly and no splenomegaly Auscultation: normal bowel sounds Back/Spine/Pelvis Back/spine/pelvis image: 1. LOCALIZED PAIN IN THE AREA OUTLINED Skin General skin exam: no rashes or lesions noted and dry skin Neuro General: oriented to person, oriented to place and oriented to time Cranial nerves: Yes Equal, round and reactive pupils present Speech: No Abnormal speech present Gait exam (Neuro): Normal gait present Motor exam (neuro): no tremor noted Extrem Right upper extremity: full ROM Left upper extremity: full ROM Right lower extremity: full ROM; no edema Left lower extremity: full ROM; no edema Psych Mental Status: mental status grossly normal Speech and movement: Normal speech and movement present Affect: normal affect Attitude: cooperative Thought process: Normal thought process present Assessment and Plan Assessment & Plan (1) Left ear pain: Code(s): H92.02 - Otalgia, left ear Plan: Does have erythematous bulging left tympanic membrane. Will supply patient with antibiotic for otitis media. (2) Strain of right latissimus dorsi muscle: Code(s): S29.012A - Strain of muscle and tendon of back wall of thorax, initial encounter Plan: His pain is very localized to a certain area in his right flank. Seems to be a muscle strain. Has done physical therapy for his right flank pain. Will continue to do therapy. He is interested in pain management referral for pain reduction modality. Orders: Referrals Pain Management Referral S29.012A - Strain of muscle and tendon of back wall of thorax, initial encounter Medications: New amoxicillin 500 mg PO Q8H 7 days 21 tabs 0RF H92.02 - Otalgia, left ear Coding Level of Care Code Est Pt Level 4 (49974) Diagnoses Left ear pain H92.02 Strain of right latissimus dorsi muscle S29.012A Additional Codes CORETTA-7 Assessment Billing - CORETTA-7 Assessment Tool: CORETTA-7 Assessment [id number] ([id number])
== END 2023-11-23 11:22 | disposition home or self-care (01) ==
PROVIDERS: PCP Physician Assistant; Visit Provider Physician Assistant
DX: H92.02 Otalgia, left ear (principal); S29.012A Strain of muscle and tendon of back wall of thorax, initial encounter
CPT/HCPCS: 99214

== ENCOUNTER 2023-12-14 08:49 | Outpatient (AMB) | payer OTHER, SELFPAY ==
--- NOTE | 2023-12-14 08:50 | A.OFFVIS_ITS ---
Vital Signs 12/14/23 10:20 Height 5 ft 11 in Weight 216 lb 4 oz BMI 30.2 BP 136/80 Blood Pressure Location Lt brachial Position Sitting Respiration 16 Pulse 81 Pulse Source Pulse Oximeter Pulse Oximetry (%) 100 Oxygen Delivery Method Room Air Intake Visit Reasons: Thoracic pain Intake Note: Patient comes in for initial visit was referred by primary care. Reports pain 10/03. Allergies No Known Allergies [No Known Allergies*] Allergy (Verified 12/14/23 10:21) HPI Comments Details: Dago is very pleasant 33 years old female who presents in my office with complains on pain in the projection of the right flank slightly below the 12th rib on the right. He has a scar in the projection of this area, the scar is very well-healed and no more than 2 cm long. Palpation of the scar is not tender the pain in the area slightly more medial and cranial to the location of the scar. He reports that his pain is aggravated with prolonged sitting and laying down. He denies pain when he is standing up. He reports this pain started 2 years ago. He states that he can not sleep normally can not do activities of daily living can not take care of himself can not function normally. 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 The pain is worse in the morning and less severe when he is standing. In terms of tissue damage he reports his pain as dull, sore, hurting, aching, heavy sensation. He tried ibuprofen to treat this pain. He reports minimal help with from ibuprofen. He never had physical therapy for this condition he never had any images of the lumbar spine he was sent for ultrasound of this area which demonstrated no pathology. He nev er had any injections. His past medical history is negative past surgical history is negative he denies smoking cigarettes he admits drinking alcohol 1-2 beers once a week admits cannabis and admits caffeinated beverages. [facility], [facility] Medical History Herniated nucleus pulposus, L5-S1, left Lumbar spondylosis Surgical History No pertinent past surgical history Family History Father Diabetes High blood pressure Tubular adenoma of colon Mother High blood pressure Social History Housing: Apartment Alcohol intake: current Alcohol intake frequency: holidays/special occasions only Alcohol type: beer Patient Tobacco Use Status: Never used Tobacco e-Cigarette/Vaping Use: Never Used Second Hand Smoke Exposure: No Substance Use Type: Marijuana service: No Current occupational status: employed 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 - [employer] Cognitive needs: No Hearing needs: No Vision needs: Yes (glasses) Review of Systems Const All systems reviewed & are unremarkable except as noted in HPI and below ENT Reports Normal hearing present Neuro Reports Normal hearing present, Denies Abnormal speech present, Denies confusion and Denies Sensory deficit (Neuro) Psych Denies confusion Physical Exam Vital Signs: Last Vital Signs Pulse 81 12/14/23 10:20 Resp 16 12/14/23 10:20 BP 136/80 12/14/23 10:20 Pulse Ox 100 12/14/23 10:20 Oxygen Delivery Method Room Air 12/14/23 10:20 BMI result Body Mass Index 30.2 Const General: healthy appearing, comfortable, no acute distress and well developed; No acute distress or confusion Orientation/consciousness: patient oriented x3 and No confusion Eyes General: appearance normal, both eyes and all related structures Pupils: Equal, round and reactive pupils present EOM: EOMs intact bilaterally Neck Neck: Yes full ROM Chest Chest palpation & inspection: normal inspection of the chest Resp Effort & Inspection: normal respiratory effort, able to speak in complete sentences, normal respiratory pattern, no audible wheezes and no cough Cardio Jugular venous distension: no JVD GI Inspection: Yes normal to inspection Back/Spine/Pelvis Other: There is minor tenderness on palpation in the projection of the trigger-point described above. No tenderness on palpation or percussion of the thoracic or lumbar spine. No tenderness in paraspinal regions. Reports no aggravation of the pain with Valsalva maneuver. Reports no significant pain flexing forward or backwards, loading test is negative. Reports flexing spine left or right side results in pain aggravation. Neuro General: patient oriented x3, gait normal and No confusion Cranial nerves: Yes CN's II-XII intact bilaterally, Yes Equal, round and reactive pupils present, Yes Normal hearing present and Yes Ability to bilaterally elevate shoulders present Speech: No Abnormal speech present Gait exam (Neuro): Normal gait present Motor exam (neuro): 5/5 motor strength present throughout Sensory Exam: No Sensory deficit (Neuro) Extrem General: No pedal edema Psych Speech and movement: Normal speech and movement present Affect: normal affect Attitude: cooperative Thought process: Normal thought process present Thought content: Normal thought content present Insight: Good insight present (Psych) Judgement: Good judgement present (Psych) Assessment & Plan Assessment & Plan (1) Strain of right latissimus dorsi muscle: Code(s): S29.012A - Strain of muscle and tendon of back wall of thorax, initial encounter Category: Medical (2) Myofascial pain syndrome: Code(s): M79.18 - Myalgia, other site Category: Medical (3) Chronic pain syndrome: Code(s): G89.4 - Chronic pain syndrome Category: Medical Plan So the pain of this patient is 2 years old. Therefore the pain is chronic. However unlikely the pain is related to the thoracic or lumbar spine. See the physical exam as above. Most likely the pain is myofascial in nature. I recommended him to go for physical therapy and home exercise program. I recommended him also to include topical medications such as icy hot and Aspercreme with lidocaine in the treatment regimen. He may continue ibuprofen as well. We agreed that he will complete 1 month of physical therapy and home exercise program and then he will complete 1 more month of home exercise program alone. If this pain will not become better he is recommended to give us a call and sche dule another appointment with me. Orders: Orders PT Evaluation and Treatment Today G89.4 - Chronic pain syndrome, M79.18 - Myalgia, other site, S29.012A - Strain of muscle and tendon of back wall of thorax, initial encounter
[2023-12-14 10:20] VITALS: BP 136/80; PULSE 81; RESP 16; O2SAT 100; BMI 30.2
== END 2023-12-14 09:11 | disposition home or self-care (01) ==
PROVIDERS: PCP Physician Assistant; Visit Provider Anesthesiology
DX: S29.012A Strain of muscle and tendon of back wall of thorax, initial encounter (principal); M79.18 Myalgia, other site; G89.4 Chronic pain syndrome
CPT/HCPCS: 99203

== ENCOUNTER → 2023-12-14 08:49 | Outpatient (BNVA) | payer OTHER, SELFPAY | PROVIDERS: PCP Physician Assistant; Visit Provider Anesthesiology | DX: S29.012A Strain of muscle and tendon of back wall of thorax, initial encounter (principal); M79.18 Myalgia, other site; G89.4 Chronic pain syndrome | CPT/HCPCS: 99202 ==

== ENCOUNTER 2024-01-26 13:27 | Outpatient (AMB) | payer OTHER, SELFPAY ==
--- NOTE | 2024-01-26 13:31 | A.OFFPC_ITS ---
Vital Signs 01/26/24 13:37 Height 5 ft 1 in Weight 220 lb 6 oz BMI 41.6 BP 140/84 H Blood Pressure Location Lt brachial Position Sitting Pulse 84 Pulse Source Pulse Oximeter Pulse Oximetry (%) 98 Oxygen Delivery Method Room Air Intake Visit Reasons: PE Allergies No Known Allergies [No Known Allergies*] Allergy (Verified 01/26/24 13:58) Medication List - Last Reconciled 01/26/24 by Anmol Hudson PA-C ibuprofen 600 mg PO Q6H PRN Tobacco use date assessed: 11/23/23 Dental Screening Dental Screen Date: 11/23/23 HPI PE HPI Details Patient is a 33-year-old male here today for annual physical. Patient's past medical history significant for lumbar disc disease, generalized anxiety disorder and obesity. Concerns--> he reports he has lot of difficulty staying focused on job tasks. He reports it is affecting his job. Has tried mindfulness and yoga which has not been helpful. He is trying to establish care with a mental health therapist. He is willing to try medication for and attention deficit disorder. Has a cyst noted on the upper posterior of his neck that has not bothered him in any way, will watch and wait.. Vaccines: He is up-to-date with COVID, Tdap [facility] Medical History (Updated 01/26/24 @ 15:50 by Anmol Hudson PA-C) Chronic pain syndrome Herniated nucleus pulposus, L5-S1, left Lumbar spondylosis Surgical History No pertinent past surgical history Family History Father Diabetes High blood pressure Tubular adenoma of colon Mother High blood pressure Social History (Updated 01/26/24 @ 14:02 by Anmol Hudson PA-C) Housing: Apartment Alcohol intake: current Alcohol intake frequency: holidays/special occasions only Alcohol type: beer Patient Tobacco Use Status: Never used Tobacco e-Cigarette/Vaping Use: Never Used Second Hand Smoke Exposure: No Substance Use Type: Marijuana service: No Current occupational status: employed 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 Leonardo Rutledge, Constance Lynch, Andrea Watters and colleagues, with an educational saturnino from [employer]. Review of Systems Const Denies body aches, Denies chills, Denies excessive sweating, Denies fatigue, Denies fever(s) and Denies headache(s) Eyes Denies blurry vision ENT Denies dysphagia, Denies vertigo, Denies dizziness, Denies headache(s), Denies hearing loss and Denies tinnitus Card Denies chest pain, Denies chest pain with activity, Denies syncope, Denies irregular heart rhythm and Denies dyspnea Resp Denies chest congestion, Denies cough, Denies hemoptysis, Denies dyspnea and Denies wheezing GI Denies abdominal pain, Denies melena, Denies hematochezia, Denies coffee ground emesis, Denies dysphagia, Denies diarrhea, Denies nausea and Denies vomiting Denies difficulty urinating, Denies dysuria, Denies urinary frequency, Denies urinary hesitancy and Denies urinary urgency Musc Denies arthralgias, Denies limited range of motion, Denies muscle cramps and Denies muscle weakness Skin/Breast Denies rash and Denies skin ulcer Neuro Denies Abnormal speech present, Denies confusion, Denies vertigo, Denies d izziness, Denies syncope, Denies headache(s), Denies memory loss and Denies seizure-like activity Psych Denies anxiety, Denies confusion, Denies depression, Denies memory loss, Denies panic attacks and Denies paranoia Endo Denies excessive sweating, Denies fatigue, Denies flushing, Denies polydipsia and Denies polyuria Aller/Immun Denies wheezing Physical exam (Primary Care) Vital Signs: Last Vital Signs Pulse 84 01/26/24 13:37 BP 140/84 H 01/26/24 13:37 Pulse Ox 98 01/26/24 13:37 Oxygen Delivery Method Room Air 01/26/24 13:37 BMI result Body Mass Index 41.6 Tobacco/Smoking Status: Tobacco use Status Tobacco use date assessed 11/23/23 01/26/24 13:31 Patient Tobacco Use Status Never used Tobacco 01/26/24 14:02 e-Cigarette/Vaping Use Never Used 01/26/24 14:02 Thrive Assessment: Date of Thrive Assessment Date Thrive assessed 11/23/23 01/26/24 13:31 Const General: cooperative, comfortable, no acute distress, alert and awake; No confusion Orientation/consciousness: oriented to person, oriented to place, patient oriented x3 and No confusion HENMT Head: Yes normocephalic Ears: external ears normal and TM's normal bilaterally Face and sinus: No sinus tenderness Mouth: Normal oral and palatal mucosa present and tongue normal Teeth and gingiva: dentition normal and gingiva normal Throat: Yes posterior oropharynx normal, Yes tonsils normal and Yes uvula midline Eyes Conjunctivae: conjunctivae normal Sclerae: sclerae normal Pupils: Equal, round and reactive pupils present EOM: EOMs intact bilaterally Direct Ophthalmoscopy: No no photophobia Neck Neck: Yes no lymphadenopathy, No tender and Yes no JVD Thyroid: Thyroid normal Carotids: no bruits Chest Chest palpation & inspection: no tenderness Resp Effort & Inspection: normal respiratory effort, no audible wheezes, not labored and no stridor Auscultation: no crackles, no rales, no rhonchi and no wheezes Cardio Jugular venous distension: no JVD Rate: regular rate, not bradycardic and not tachycardic Rhythm: regular rhythm Bruits: no carotid bruits Peripheral pulses: Peripheral pulses 2+ throughout GI Inspection: Yes normal to inspection, No abdominal wall ecchymosis and No visible herniation Palpation (GI): Soft to palpation, nontender, no guarding, not rigid and No hepatosplenomegaly present Auscultation: normoactive bowel sounds General: Yes no CVA tenderness Back/Spine/Pelvis Back: no CVA tenderness and No back tenderness Cervical Spine: cervical ROM normal Thoracic/Lumbar Spine: thoracic and lumbar spine normal to inspection, straight leg raise negative bilaterally, No thoraco-lumbar ROM limited and No lumbar spinal tenderness Skin Lesions: no lesions Rashes: no rashes Wounds: no wounds Neuro General: oriented to person, oriented to place, patient oriented x3, CN's II-XI intact bilaterally and No confusion Cranial nerves: Yes Equal, round and reactive pupils present and Yes Normal acc ommodation reflex present Cognition (Neuro): normal cognition Speech: No Abnormal speech present Gait exam (Neuro): Normal gait present Motor exam (neuro): 5/5 motor strength present throughout Extrem Right upper extremity: full ROM; no cyanosis Left upper extremity: full ROM; no cyanosis Right lower extremity: no edema Left lower extremity: no edema Psych Appearance: grossly normal Mental Status: mental status grossly normal Affect: normal affect Attitude: cooperative Thought process: Normal thought process present Assessment and Plan Assessment & Plan (1) Annual physical exam: Code(s): Z00.00 - Encounter for general adult medical examination without abnormal findings (2) Attention deficit disorder (ADD): Code(s): F98.8 - Other specified behavioral and emotional disorders with onset usually occurring in childhood and adolescence Qualifiers: Attention deficit-hyperactivity disorder type: predominantly inattentive Hyperactivity presence: present Qualified Code(s): F90.0 - Attention-deficit hyperactivity disorder, predominantly inattentive type Plan: Dago reports he has been having trouble with attention and focus on his job tasks. Has tried mindfulness and yoga which have not been effective. He has a call into mental health therapy that get a mental therapist. He would like to try medication to help him with his attention focus on job tasks he is willing to trial Strattera 40 mg and will correspond via portal on effectiveness. (3) Screening for diabetes mellitus (DM): Code(s): Z13.1 - Encounter for screening for diabetes mellitus Orders: Orders Comprehensive [facility]. Panel Fast Today Z13.1 - Encounter for screening for diabetes mellitus Medications: New atomoxetine (Strattera) 40 mg PO DAILY 14 caps 0RF 14 days F90.0 - Attention- deficit hyperactivity disorder, predominantly inattentive type Coding Level of Care Code Est Pt Prev Care 18-39y(16657) Diagnoses Annual physical exam Z00.00 Attention deficit hyperactivity disorder (ADHD), predominantly inattentive type F90.0 Attention deficit-hyperactivity disorder type: predominantly inattentive Hyperactivity presence: present Screening for diabetes mellitus (DM) Z13.1
[2024-01-26 13:37] VITALS: BP 140/84; PULSE 84; O2SAT 98; BMI 41.6
== END 2024-01-26 14:19 | disposition home or self-care (01) ==
PROVIDERS: Visit Provider Physician Assistant
DX: Z00.00 Encounter for general adult medical examination without abnormal findings (principal); F90.0 Attention-deficit hyperactivity disorder, predominantly inattentive type; Z13.1 Encounter for screening for diabetes mellitus
CPT/HCPCS: 99395

== ENCOUNTER 2024-02-01 09:51 | Outpatient (REF) | payer OTHER, SELFPAY ==
[2024-02-01 11:14] LABS: Alanine Aminotransferase 44 U/L (0-40); Albumin Level 4.7 g/dL (3.5-5.0); Alkaline Phosphatase 70 U/L (39-117); Anion Gap 10 (12-20); Aspartate Amino Transferase 21 U/L (5-37); Bilirubin Total 0.7 mg/dL (0.0-1.0); Blood Urea Nitrogen 11 mg/dL (9-16); Carbon Dioxide 30 mmol/L (22-29); Chloride 104 mmol/L (96-108); Estimated Glomerular Filt Rate > 60; Glucose Fasting 96 mg/dL (60-99); Potassium 4.4 mmol/L (3.3-5.1); Sodium 140 mmol/L (135-145); Total Protein 7.8 g/dL (6.5-8.0)
== END 2024-02-01 09:52 | disposition home or self-care (01) ==
LOC: HO.LAB 09:51
PROVIDERS: PCP Physician Assistant; Visit Provider Physician Assistant
DX: Z13.1 Encounter for screening for diabetes mellitus (principal)
CPT/HCPCS: 36415; 80053

== ENCOUNTER 2024-04-28 09:38 | Outpatient (AMB) | payer OTHER, SELFPAY ==
--- NOTE | 2024-04-28 09:41 | MHC.OFFWIV ---
Intake Vital Signs 04/28/24 09:42 Height 5 ft 11 in Weight 219 lb BMI 30.5 BP 134/88 Blood Pressure Location Lt brachial Position Sitting Pulse 67 Pulse Source Pulse Oximeter Temp 98.0 F Temp Source Oral Pulse Oximetry (%) 97 Oxygen Delivery Method Room Air Intake Visit Reasons: EP LT side swelling Intake Note: pt c/o LT side groin swelling.Painful to touch. Started 2 days ago Patient Tobacco Use Status: Former Tobacco user Allergies No Known Allergies [No Known Allergies*] Allergy (Verified 04/28/24 09:41) Do you need a note to return to daycare/school/sports/work: Yes HPI HPI Comments History of Present Illness Details Patient is a 34-year-old male complaining of 3 days of left inguinal swelling. He states it is not painful unless he touches it. He states this has never happened before. He has not done anything to try to make it feel better. [facility] Medical History (Updated 04/28/24 @ 10:02 by Alia Toth PA-C) Chronic pain syndrome Herniated nucleus pulposus, L5-S1, left Lumbar spondylosis Surgical History No pertinent past surgical history Family History Father Diabetes High blood pressure Tubular adenoma of colon Mother High blood pressure Social History (Updated 01/26/24 @ 14:02 by Anmol Hudson PA-C) Housing: Apartment Alcohol intake: current Alcohol intake frequency: holidays/special occasions only Alcohol type: beer Patient Tobacco Use Status: Former Tobacco user e-Cigarette/Vaping Use: Never Used Second Hand Smoke Exposure: No Substance Use Type: Marijuana service: No Current occupational status: employed 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 - [employer] Cognitive needs: No Hearing needs: No Vision needs: Yes (glasses) Review of Systems Const All systems reviewed & are unremarkable except as noted in HPI and below Physical Exam Vital Signs: Last Vital Signs Temp 98.0 F 04/28/24 09:42 Pulse 67 04/28/24 09:42 BP 134/88 04/28/24 09:42 Pulse Ox 97 04/28/24 09:42 Oxygen Delivery Method Room Air 04/28/24 09:42 BMI result Body Mass Index 30.5 Const General: cooperative, healthy appearing, comfortable, no acute distress and well developed Orientation/consciousness: patient oriented x3 Limitations: no limitations HEENT Head: Yes normal to inspection Ears: hearing grossly normal bilaterally General nose exam: Normal external nose present Face and sinus: Yes normal facial exam Eyes General: appearance normal, both eyes and all related structures Neck Neck: Yes normal visual inspection and Yes full ROM Resp Effort & Inspection: normal respiratory effort and able to speak in complete sentences Male General Exam: Yes hernia (Nonreducible, tender to touch, left side) Skin General skin exam: no rashes or lesions noted Neuro General: patient oriented x3 Extrem General: Yes normal to inspection Assessment & Plan Assessment & Plan (1) Inguinal hernia: Code(s): K40.90 - Unilateral inguinal hernia, without obstruction or gangrene, not specified as recurrent Qualifiers: Obstruction and gangrene presence: without obstruction or gangrene Laterality: unilateral Recurrence: non-recurrent Qualified Code(s): K40.90 - Unilateral inguinal hernia, without obstruction or gangrene, not specified as recurrent Plan: Vital signs are stable, patient is well-appearing, however hernia is nonreducible and painful to touch. Sent to emergency department for further workup. [place] text to [facility] PA with expect. Plan see above Coding Level of Care Code Est Pt Level 5 (03211) Diagnoses Non-recurrent unilateral inguinal hernia without obstruction or gangrene K40.90 Obstruction and gangrene presence: without obstruction or gangrene Laterality: unilateral Recurrence: non-recurrent
[2024-04-28 09:42] VITALS: BP 134/88; PULSE 67; TEMP 36.7; O2SAT 97; BMI 30.5
== END 2024-04-28 10:09 | disposition home or self-care (01) ==
PROVIDERS: PCP Physician Assistant; Visit Provider Physician Assistant
DX: K40.90 Unilateral inguinal hernia, without obstruction or gangrene, not specified as recurrent (principal)
CPT/HCPCS: 99215

== ENCOUNTER 2024-04-28 10:32 | Emergency (ER) | payer OTHER, SELFPAY ==
--- NOTE | ~2024-04-28 | US_ITS ---
EXAMINATION: US left inguinal location, LIMITED/FOLLOW UP CLINICAL INFORMATION: Swelling COMPARISON: None available. TECHNIQUE: Targeted ultrasound color Doppler FINDINGS: Total shunt demonstrates no hernia fluid collection. There are multiple lymph nodes which demonstrate a reactive appearance measuring up to 3.3 x 0.9 x 2.1 cm. US/US pelvic limited IMPRESSION: 1. No hernia fluid collection. 2. Reactive appearing lymph consistent nonspecific lymphadenitis. Correlation and follow-up recommended clinically.. Electronically signed by: Luis Crawford MD 04/28/2024 05:33 PM EDT
[2024-04-28 10:52] VITALS: BP 135/85; PULSE 68; RESP 18; TEMP 37.1; O2SAT 99; BMI 30.7
--- NOTE | 2024-04-28 12:50 | ED_ITS ---
HPI - Abdominal Pain General Chief Complaint: Abdominal Pain Stated Complaint: Hernia Time Seen by Provider: 04/28/24 12:43 Source: patient and old records reviewed Mode of arrival: ambulatory Limitations: no limitations History of Present Illness ED Provider: JERRI HPI narrative: 34 yo male with PMH Of anxiety, ADD, here with c/o L groin pain and bulge no known trauma. No issues with urination and bowel movements. He is passing gas. He was sent by urgent care for hernia referral. He notes it is fine when laying flat and comes out with standing and straining. MD elicited complaint: other (hernia L side) Onset (ago): day(s) (3) Pain Consistency: intermittent Location: other (L groin) Severity: mild Quality: fullness Radiation: none Migration to: no migration Exacerbating factors: movement Relieving factors: nothing Associated symptoms: denies other symptoms Related Data Previous Rx's ?Medication ?Instructions ?Recorded ibuprofen 600 mg tablet 600 mg PO Q6H PRN pain #30 tabs 10/29/23 atomoxetine 40 mg capsule 40 mg PO DAILY 30 days #30 caps 03/14/24 (Strattera) Allergies Allergy/AdvReac Type Severity Reaction Status Date / Time No Known Allergies Allergy Verified 04/28/24 10:54 [No Known Allergies*] Review of Systems Review of Systems Constitutional : No Weight loss, No Fever, No Chills ENT/Mouth : No sore throat, No Rhinorrhea Eyes: No Swelling, No Redness Cardiovascular : No Chest Pain, No SOB, NoEdema Respiratory : No Cough, No Sputum, No Wheezing Gastrointestinal : no Nausea, no Vomiting, no Diarrhea, no abdominal Pain, No Hematochezia, No Melena Genitourinary : No Dysuria, No Urinary Frequency, No Hematuria, No Urgency Musculoskeletal : No joint pain, No Myalgias, No Joint Swelling Skin : No Skin Lesions, No rash Neuro : No Weakness, No Numbness, No Dizziness, No Headache Psych : No Anxiety/Panic, No Depression All other systems reviewed and are negative. [facility] Past Medical History Attestation statement: The following information was validated with the patient. Source: old records reviewed Medical History Chronic pain syndrome Herniated nucleus pulposus, L5-S1, left Lumbar spondylosis Surgical History No pertinent past surgical history Family History Family History Father Diabetes High blood pressure Tubular adenoma of colon Mother High blood pressure Social History Social History Housing: Apartment Alcohol intake: current Alcohol intake frequency: holidays/special occasions only Alcohol type: beer Patient Tobacco Use Status: Former Tobacco user Smoked in Last 30 Days: No e-Cigarette/Vaping Use: Never Used Second Hand Smoke Exposure: No Substance Use Type: Marijuana Advance Directives: No Advance Directives Information Provided: Yes Do you have a plan to hurt others: No Plan service: No Current occupational status: employed 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 Oriented X3. No acute distress. Eyes: Pupils equal, round and reactive to light. ENT: Pharynx normal. Neck: Normal inspection. Neck supple. CVS: Normal heart rate and rhythm. Pulses normal. Respiratory: No respiratory distress. Breath sounds normal. Abdomen: Soft and nontender. normal exam, soft reducible area but no defect felt unsure if hernia vs node but soft Skin: Skin warm and dry. Normal skin color. Normal skin turgor. Extremities: No lower extremity edema. No calf ttp Neuro: Oriented X 3. No motor deficit. No sensory deficit. Medical Decision Making Medical Decision Making MDM Narrative: 34 yo male with PMH Of anxiety, ADD, here with c/o L groin pain area is soft reproduceable and he has no GI or symptoms with no sigsn of obstruction will need basic labs, US and discussed no lifting and reasons to return with surgery follow up Differential Diagnosis Differential Diagnoses: The differential diagnosis associated with the presentation includes reducible inguinal hernia vs lymph node Admission/Observation Consideration of admission/observation: Escalation of care including admission/observation considered not toxic no signs of obstruction outpatient follow up Lab Data MDM Lab Attestation statement: I reviewed the patient's lab results. 04/28/24 13:06 04/28/24 13:06 Labs: Lab Results 04/28/24 Range/Units 13:06 WBC 7.5 (4.8-10.8) X10*3/uL RBC 4.94 (4.60-5.80) X10*6/uL Hgb 14.9 (14.0-18.0) g/dl Hct 42.4 (42.0-52.0) % MCV 85.8 (80.0-98.0) fL MCH 30.2 (27.0-33.0) pg MCHC 35.1 (31.0-36.0) g/dl RDW 12.6 (11.0-16.0) % Plt Count 234 (160-400) X10*3/uL MPV 9.6 (9.4-12.4) fL Immature Gran % (Auto) 0.3 (0.0-0.4) % Neut % (Auto) 71.8 (45-73) % Lymph % (Auto) 17.5 L (20-40) % Heard % (Auto) 8.2 (2-11) % Eos % (Auto) 1.7 (0-4) % Baso % (Auto) 0.5 (0-2) % Lymph # (Auto) 1.3 (1.2-4.9) X10*3/uL Heard # (Auto) 0.6 (0.1-1.2) X10*3/uL Eos # (Auto) 0.1 (0.0-0.4) X10*3/uL Baso # (Auto) 0.0 (0.0-0.2) X10*3/uL Abs Immat Gran (auto) 0.02 (0.00-0.03) X10*3/uL Absolute Neuts (auto) 5.4 (2.0-8.3) x10*3/uL Absolute Nucleated RBC 0.000 (0.0-0.012) X10*3/uL Nucleated RBC % (auto) 0.0 (0.0-0.2) /100WBC Sodium 139 (135-145) mmol/L Potassium 3.7 (3.3-5.1) mmol/L Chloride 103 (96-108) mmol/L Carbon Dioxide 28 (22-29) mmol/L Anion Gap 12 (12-20) BUN 13 (9-16) mg/dL Creatinine 0.90 (0.5-1.4) mg/dL Estim Creat Clear Calc 136.6 Estimated GFR > 60 Random Glucose 99 (60-115) mg/dL Lactic Acid 0.8 (0.5-2.0) mmol/L Calcium 9.6 (8.4-10.2) mg/dL Magnesium 2.2 (1.6-2.6) mg/dL Total Bilirubin 0.7 (0.0-1.0) mg/dL Direct Bilirubin 0.2 (0.0-0.5) mg/dL AST 36 (5-37) U/L ALT 70 H (0-40) U/L Alkaline Phosphatase 68 (39-117) U/L Total Protein 7.6 (6.5-8.0) g/dL Albumin 4.6 (3.5-5.0) g/dL Urine Color Yellow Urine Appearance Cloudy Urine pH 8.0 (5.0-9.0) Ur Specific [place] 1.025 (1.005-1.025) Urine Protein Negative (Neg-Trace) mg/dL Urine Glucose (UA) Negative (Negative) mg/dL Urine Ketones Negative (Negative) mg/dL Urine Blood Negative (Negative) Urine Nitrite Negative (Negative) Ur Leukocyte Esterase Negative (Negative) Independent Interpretation I performed an independent interpretation of an: Ultrasound Radiology Impression Discussion of test interpretation with radiology: I have reviewed the radiologist's reading. Independent Historian Clinical information obtained from an independent historian. History obtained from or confirmed by: Spouse External Record Review External record reviewed: Office record Discharge Plan Discharge Clinical Impression: Lymphadenopathy Patient Disposition: Home, Self-Care Instructions: Lymphadenopathy (ED) Additional Instructions: avoid straining no lifting more than 10lbs return for severe pain, unable to have bowel movement or pass gas, vomiting or any other concerns if it comes out lay flat and gently push back in as discussed if you cannot and have pain seek care call surgeon REPEAT ULTRASOUND IN 1 WEEK TO MAKE SURE THEY ARE NOT INCREASING IN SIZE Prescriptions: No Action atomoxetine [Strattera] 40 mg capsule 40 mg PO DAILY 30 Days Qty: 30 2RF ibuprofen 600 mg tablet 600 mg PO Q6H PRN (Reason: pain) Qty: 30 0RF Referrals: [facility] [place] General Surgeons [Provider Group] Stand Alone Forms: Work/School Release Print Language: Bulgarian
[2024-04-28 13:11] LABS: MANUAL DIFF FLAG NO
[2024-04-28 13:14] LABS: Appearance Urine Cloudy; Color Urine Yellow; Glucose Urine UA Negative (Negative); Leukocyte Esterase Urine Negative (Negative); Nitrite Urine Negative (Negative); Specific Gravity - Urine 1.025 (1.005-1.025); Urine Blood Negative (Negative); Urine Ketones Negative (Negative); Urine Protein Negative (Neg-Trace)
[2024-04-28 13:15] LABS: Basophils Percent Auto 0.5 % (0-2); Eosinophils Absolute Auto 0.1 X10*3/uL (0.0-0.4); Eosinophils Percent Auto 1.7 % (0-4); Hematocrit 42.4 % (42.0-52.0); Hemoglobin 14.9 g/dl (14.0-18.0); Imm Gran Abs Auto 0.02 X10*3/uL (0.00-0.03); Imm Gran Pct Auto 0.3 % (0.0-0.4); Lymphocytes Absolute Auto 1.3 X10*3/uL (1.2-4.9); Lymphocytes Percent Auto 17.5 % (20-40); Mean Corpuscular HGB Conc 35.1 g/dl (31.0-36.0); Mean Corpuscular Hemoglobin 30.2 pg (27.0-33.0); Mean Corpuscular Volume 85.8 fL (80.0-98.0); Mean Platelet Volume 9.6 fL (9.4-12.4); Monocytes Absolute Auto 0.6 X10*3/uL (0.1-1.2); Monocytes Percent Auto 8.2 % (2-11); Neutrophils Absolute Auto 5.4 x10*3/uL (2.0-8.3); Neutrophils Percent Auto 71.8 % (45-73); Platelet Count 234 X10*3/uL (160-400); Red Blood Count 4.94 X10*6/uL (4.60-5.80); Red Cell Distribution Width 12.6 % (11.0-16.0); White Blood Count 7.5 X10*3/uL (4.8-10.8)
--- NOTE | 2024-04-28 13:15 | PC.NURSE ---
left inguinal area is raised, soft, tender to touch. not warm to touch and no reddnness noted.
[2024-04-28 13:32] LABS: Lactic Acid 0.8 mmol/L (0.5-2.0)
[2024-04-28 13:36] LABS: Alanine Aminotransferase 70 U/L (0-40); Albumin Level 4.6 g/dL (3.5-5.0); Alkaline Phosphatase 68 U/L (39-117); Anion Gap 12 (12-20); Aspartate Amino Transferase 36 U/L (5-37); Bilirubin Direct 0.2 mg/dL (0.0-0.5); Bilirubin Total 0.7 mg/dL (0.0-1.0); Blood Urea Nitrogen 13 mg/dL (9-16); Calcium 9.6 mg/dL (8.4-10.2); Carbon Dioxide 28 mmol/L (22-29); Chloride 103 mmol/L (96-108); Creatinine Clr Calc Pharmacy 136.6; Estimated Glomerular Filt Rate > 60; Glucose Random 99 mg/dL (60-115); Magnesium 2.2 mg/dL (1.6-2.6); Potassium 3.7 mmol/L (3.3-5.1); Sodium 139 mmol/L (135-145); Total Protein 7.6 g/dL (6.5-8.0)
[2024-04-28 14:00] VITALS: BP 126/67; PULSE 61; RESP 16; TEMP 36.7; O2SAT 100
[2024-04-28 16:00] VITALS: BP 107/68; PULSE 63; RESP 14; TEMP 36.8; O2SAT 99
[2024-04-28 18:06] VITALS: BP 111/62; PULSE 65; RESP 16; TEMP 36.9; O2SAT 99
== END 2024-04-28 18:08 | disposition home or self-care (01) ==
PROVIDERS: Physician Assistant; Emergency Provider Emergency Medicine; PCP Physician Assistant
DX: R59.1 Generalized enlarged lymph nodes (principal); R10.32 Left lower quadrant pain
CPT/HCPCS: 36415; 76857; 80048; 80076; 81003; 83605; 83735; 85025; 99284

== ENCOUNTER 2024-04-29 12:34 | Outpatient (AMB) | payer OTHER, SELFPAY ==
[2024-04-29 12:53] VITALS: BP 154/90; PULSE 83; TEMP 37.1; O2SAT 98; BMI 30.4
--- NOTE | 2024-04-29 12:53 | MHC.OFFWIV ---
Intake Vital Signs 04/29/24 12:53 Height 5 ft 11 in Weight 218 lb BMI 30.4 BP 154/90 H Blood Pressure Location Lt brachial Position Sitting Pulse 83 Pulse Source Pulse Oximeter Temp 98.7 F Temp Source Oral Pulse Oximetry (%) 98 Oxygen Delivery Method Room Air Intake Visit Reasons: EP Bumps in genital area Intake Note: pt c/o bumps in genital area. Started yesterday. Seen at [facility] [place] yesterday Patient Tobacco Use Status: Former Tobacco user Allergies No Known Allergies [No Known Allergies*] Allergy (Verified 04/29/24 12:53) Do you need a note to return to daycare/school/sports/work: No HPI EP Bumps in genital area HPI Details 34 year old male patient presents to the [place] clinic today for left inguinal swelling. He was seen at the [place] clinic yesterday for this and was ultimately recommended to have evaluation in the ED for possible hernia. He had a worlup in the ED and the ultrasound showed a reactive lymphadenitis, nonspecific, without hernia. He was advised a repeat US in about 1 week for this and was discharged home. Patient returns to the [place] clinic today and reports that he did not disclose a bumpy rash around genitals when being evaluated yesterday. This has been present for several days, around the same time the left inguinal swelling started. He denies any risk for STI. He reports he did use an old razor when shaving around scrotum. He has some small red bumps, some of which he has popped . They are not painful unless he is touching them. Denies any fever/chills or spreading of rash. [facility] Medical History Chronic pain syndrome Herniated nucleus pulposus, L5-S1, left Lumbar spondylosis Surgical History No pertinent past surgical history Family History Father Diabetes High blood pressure Tubular adenoma of colon Mother High blood pressure Social History Housing: Apartment Alcohol intake: current Alcohol intake frequency: holidays/special occasions only Alcohol type: beer Patient Tobacco Use Status: Former Tobacco user e-Cigarette/Vaping Use: Never Used Second Hand Smoke Exposure: No Substance Use Type: Marijuana service: No Current occupational status: employed 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 Cognitive needs: No Hearing needs: No Vision needs: Yes (glasses) Review of Systems Const All systems reviewed & are unremarkable except as noted in HPI and below Physical Exam Vital Signs: Last Vital Signs Temp 98.7 F 04/29/24 12:53 Pulse 83 04/29/24 12:53 BP 154/90 H 04/29/24 12:53 Pulse Ox 98 04/29/24 12:53 Oxygen Delivery Method Room Air 04/29/24 12:53 BMI result Body Mass Index 30.4 Const General: cooperative, healthy appearing, comfortable, no acute distress and well developed Orientation/consciousness: patient oriented x3 Limitations: no limitations HEENT Head: Yes normal to inspection Ears: hearing grossly normal bilaterally General nose exam: Normal external nose present Face and sinus: Yes normal facial exam Eyes General: appearance normal, both eyes and all related structures Neck Neck: Yes normal visual inspection and Yes full ROM Resp Effort & Inspection: normal respiratory effort and able to speak in complete sentences Other: small red bumps surrounding hair follicles on scrotum and around pubic region - consistent with folliculitis. No surrounding warmth or redness. Male General Exam: Yes inguinal lymphadenopathy on the left Neuro General: patient oriented x3 Extrem General: Yes normal to inspection Psych Appearance: grossly normal Mental Status: mental status grossly normal Speech and movement: Normal speech and movement present Assessment & Plan Assessment & Plan (1) Folliculitis: Code(s): L73.9 - Follicular disorder, unspecified Plan: Will try clindamycin lotion for folliculitis. Advised warm compresses as needed. He was recommended a f/u US for the lymphadenitis. Will copy note to PCP Danny Hudson for this. Discussed with patient plan moving forward, and if symptoms worsen/new symptoms develop, he can certainly return to the walk-in for further evaluation. He verbalizes understanding and agrees to plan. Medications: New clindamycin phosphate 1% Apply lotion to rash twice a day until rash resolves. 1 appl topical BID 60 mL 1RF L73.9 - Follicular disorder, unspecified Coding Level of Care Code Est Pt Level 4 (59468) Diagnoses Folliculitis L73.9
== END 2024-04-29 14:03 | disposition home or self-care (01) ==
PROVIDERS: PCP Physician Assistant; Visit Provider Nurse Practitioner Family
DX: L73.9 Follicular disorder, unspecified (principal)
CPT/HCPCS: 99214

== ENCOUNTER 2024-05-03 10:39 | Outpatient (AMB) | payer OTHER, SELFPAY ==
--- NOTE | 2024-05-03 10:56 | A.OFFPC_ITS ---
Vital Signs 3 05/03/24 11:02 Height 5 ft 11 in Weight 216 lb BMI 30.1 BP 116/64 Blood Pressure Location Lt brachial Position Sitting Pulse 84 Pulse Source Pulse Oximeter Pulse Oximetry (%) 99 Oxygen Delivery Method Room Air Intake Visit Reasons: [facility] [place] 04/28-hernia/swollen lymph node Intake Note: Patient is here to follow-up after a visit the emergency department at [facility] [place] [facility] on 04/28/24 for Lymphadenopathy. Pt will need to get a US within a week. Life Science Taxonomist Required: No Accompanied by: Self / Same As Patient Allergies No Known Allergies [No Known Allergies*] Allergy (Verified 05/03/24 11:16) Medication List - Last Reconciled 05/03/24 by Anmol Hudson PA-C atomoxetine (Strattera) 40 mg PO DAILY 30 days clindamycin phosphate 1% 1 appl topical BID ibuprofen 600 mg PO Q6H PRN Tobacco use date assessed: 11/23/23 Dental Screening Dental Screen Date: 11/23/23 HPI [facility] [place] 04/28-hernia/swollen lymph node 2 HPI0 Details Patient is a 34-year-old male here today for a ER follow-up visit. Patient presented the for swollen left side of his groin otherwise no GI or symptoms. He reports the rash presented only in the left side of his groin.. He has been seen at urgent care for the rash and was given clindamycin cream that he has been applying. He was sent for pelvic ultrasound which showed-->Total shunt demonstrates no hernia fluid collection. There are multiple lymph nodes which demonstrate a reactive appearance measuring up to 3.3 x 0.9 x 2.1 cm. Labs were stable and urinalysis with without any signs of UTI. He was advised to perhaps getting a repeat pelvic ultrasound to see if the lymphadenitis has resolved. [facility] Medical History Chronic pain syndrome Herniated nucleus pulposus, L5-S1, left Lumbar spondylosis Surgical History No pertinent past surgical history Family History Father Diabetes High blood pressure Tubular adenoma of colon Mother High blood pressure Social History Housing: Apartment Alcohol intake: current Alcohol intake frequency: holidays/special occasions only Alcohol type: beer Patient Tobacco Use Status: Former Tobacco user e-Cigarette/Vaping Use: Never Used Second Hand Smoke Exposure: No Substance Use Type: Marijuana service: No Current occupational status: employed 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 Leonardo Rutledge, Constance Lynch, Andrea Watters and colleagues, with an educational saturnino from [employer]. Review of Systems Const Denies headache(s) Eyes Denies loss of vision ENT Denies vertigo, Denies dizziness, Denies headache(s) and Denies sore throat Card Denies chest pain, Denies leg edema and Denies lightheadedness Resp Denies cough, Denies hemoptysis and Denies wheezing GI Denies abdominal pain, Denies melena, Denies constipation, Denies diarrhea and Denies vomiting Denies dysuria, Denies urinary frequency and Denies urinary urgency Musc Denies arthralgias, Denies joint swelling, Denies numbness and Denies tingling Neuro Denies Abnormal speech present, Denies behavioral changes, Denies vertigo, Denies dizziness, Denies headache(s), Denies loss of vision, Denies memory loss, Denies numbness and Denies tingling Psych Denies anxiety, Denies behavioral changes, Denies depression, Denies memory loss and Denies panic attacks Romeo/Lymph Denies easy bleeding and Denies easy bruising Aller/Immun Denies wheezing Physical exam (Primary Care) Vital Signs: Last Vital Signs Pulse 84 05/03/24 11:02 BP 116/64 05/03/24 11:02 Pulse Ox 99 05/03/24 11:02 Oxygen Delivery Method Room Air 05/03/24 11:02 BMI result Body Mass Index 30.1 Tobacco/Smoking Status: Tobacco use Status Tobacco use date assessed 11/23/23 05/03/24 10:56 Patient Tobacco Use Status Former Tobacco user 05/03/24 10:56 e-Cigarette/Vaping Use Never Used 05/03/24 10:56 Thrive Assessment: Date of Thrive Assessment Date Thrive assessed 11/23/23 05/03/24 10:56 Const General: healthy appearing, no acute distress, alert and awake Nutritional Appearance: well nourished Orientation/consciousness: oriented to person, oriented to place and oriented to time HENMT Ears: TM's normal bilaterally General nose exam: Normal nasal mucous membranes and turbinates present Eyes Conjunctivae: conjunctivae normal Sclerae: sclerae normal Pupils: Equal, round and reactive pupils present Neck Neck: Yes no lymphadenopathy and Yes no JVD Thyroid: Thyroid normal Carotids: no bruits Resp Effort & Inspection: normal respiratory effort and not tachypneic Auscultation: no crackles, no rales, no rhonchi and no wheezes Cardio Rate: regular rate Rhythm: regular rhythm Heart sounds: no murmurs and normal S1 and S2 GI Palpation (GI): Soft to palpation, nontender, no hepatomegaly and no splenomegaly Auscultation: normal bowel sounds Male genitals images: 2 1. GROUP VESICULAR HYPERPIGMENTED RASH FORMATION OVER LEFT-SIDED GROIN. Skin General skin exam: no rashes or lesions noted and dry skin Neuro General: oriented to person, oriented to place and oriented to time Cranial nerves: Yes Equal, round and reactive pupils present Speech: No Abnormal speech present Gait exam (Neuro): Normal gait present Motor exam (neuro): no tremor noted Extrem Right upper extremity: full ROM Left upper extremity: full ROM Right lower extremity: full ROM; no edema Left lower extremity: full ROM; no edema Psych Mental Status: mental status grossly normal Speech and movement: Normal speech and movement present Affect: normal affect Attitude: cooperative Thought process: Normal thought process present Assessment and Plan Assessment & Plan (1) Shingles: Code(s): B02.9 - Zoster without complications Qualifiers: Herpes zoster complications: without complications Qualified Code(s): B 02.9 - Zoster without complications Plan: Patient's skin manifestation appears has a herpetic rash over the left side of his groin. He seemed to have had lymphadenitis reactive to his infection. Will send for repeat pelvic ultrasound. He is currently outside the window to start antiviral. Explain precautions he should take with this type of rash (2) Lymphadenitis: Code(s): I88.9 - Nonspecific lymphadenitis, unspecified Plan: As per above will send for new pelvic ultrasound to evaluate for resolving lymphadenitis. Orders: Orders 2 US pelvic limited Today I88.9 - Nonspecific lymphadenitis, unspecified Coding Level of Care Code Est Pt Level 3 (58460) Diagnoses Herpes zoster without complication B02.9 Herpes zoster complications: without complications Lymphadenitis I88.9
[2024-05-03 11:02] VITALS: BP 116/64; PULSE 84; O2SAT 99; BMI 30.1
== END 2024-05-03 11:33 | disposition home or self-care (01) ==
PROVIDERS: PCP Physician Assistant; Visit Provider Physician Assistant
DX: B02.9 Zoster without complications (principal); I88.9 Nonspecific lymphadenitis, unspecified
CPT/HCPCS: 99213

== ENCOUNTER 2024-05-06 12:58 | Outpatient (REF) | payer OTHER, SELFPAY ==
--- NOTE | ~2024-05-06 | US_ITS ---
EXAMINATION: US PELVIS, LIMITED/FOLLOW UP CLINICAL INFORMATION: Lymphadenitis. COMPARISON: Left groin ultrasound 04/28/2024. TECHNIQUE: Targeted sonographic evaluation of the left groin. FINDINGS: Accurate size comparison with prior examination is limited due to differences in technique. Redemonstration of left inguinal lymphadenopathy with some of the nodes demonstrating an atypical round shape, as well as lobulated margins and suggestion of minimal cortical thickening. Largest measuring 1.2 x 1 x 1.1 cm, 1.0 x 1 x 0.9 cm, 1.8 x 0.7 x 1.3 cm and 1.4 x 0.8 x 0.8 cm. US/US pelvic limited IMPRESSION: Redemonstration of left inguinal lymphadenopathy with some atypical mendy features, indeterminate. Recommend clinical correlation with reactive lymphadenopathy and if absent, follow-up ultrasound in 6-8 weeks. Unfortunately, accurate comparison with recent prior is limited due to differences in technique. Electronically signed by: Kenya Barger MD 05/06/2024 02:54 PM EDT
== END 2024-05-06 12:59 | disposition home or self-care (01) ==
LOC: HO.US 12:58
PROVIDERS: PCP Physician Assistant; Visit Provider Physician Assistant
DX: I88.9 Nonspecific lymphadenitis, unspecified (principal)
CPT/HCPCS: 76857

== ENCOUNTER 2024-10-12 11:13 | Outpatient (AMB) | payer OTHER, SELFPAY ==
--- NOTE | 2024-10-12 11:15 | MHC.OFFWIV ---
Intake Vital Signs 10/12/24 11:17 Weight 232 lb BP 122/90 H Blood Pressure Location Rt brachial Position Sitting Pulse 82 Pulse Source Pulse Oximeter Temp 98.2 F Temp Source Oral Pulse Oximetry (%) 98 Oxygen Delivery Method Room Air Intake Visit Reasons: EP ? ear infection Intake Note: Patient here for right ear pain that has been present for about 1 week. Patient Tobacco Use Status: Former Tobacco user Allergies No Known Allergies [No Known Allergies*] Allergy (Verified 10/12/24 11:18) Do you need a note to return to daycare/school/sports/work: No HPI HPI Comments History of Present Illness Details Patient is a 34yo M who presents with R ear pain x 1 week He states it was swollen and felt difficult to hear Tylenol/Motrin helps Inside feels swollen per pt He said minimal pain with pain medicine Pain worse at night + decreased hearing No trauma No L ear symptoms No URI symptoms No fever or chills He said he has a bad habit of using Q tips in ears PFSH Medical History Chronic pain syndrome Herniated nucleus pulposus, L5-S1, left Lumbar spondylosis Surgical History No pertinent past surgical history Family History Father Diabetes High blood pressure Tubular adenoma of colon Mother High blood pressure Social History Housing: Apartment Alcohol intake: current Alcohol intake frequency: holidays/special occasions only Alcohol type: beer Patient Tobacco Use Status: Former Tobacco user e-Cigarette/Vaping Use: Never Used Second Hand Smoke Exposure: No Substance Use Type: Marijuana service: No Current occupational status: employed 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 Speaking full sentences. Skin: Warm dry throughout. No external R ear edema, erythema, warmth, lesions. No mastoid erythema or edema Eye: EOMI HENT: L canal clear. No L auricular ttp. No R mastoid ttp. R canal + edematous with 2 scabbed lesions and slight discharge along inferior aspect. Bilateral TM non-erythematous, non-bulging. No TM perforation or hemotympanum noted. Respiratory: No respiratory distress Neurology: Alert. No aphasia or facial droop. Gait without abnormality Psych: Good mood and affect Assessment & Plan Assessment & Plan (1) Otitis externa: Code(s): H60.90 - Unspecified otitis externa, unspecified ear Qualifiers: Otitis externa type: other infective Chronicity: acute Laterality: right Qualified Code(s): H60.391 - Other infective otitis externa, right ear Plan: Patient seen and evaluated. + R OE on examination Discussed antibiotic use and avoidance of Q tips and water He will continue ibuprofen/tylenol prn pain Patient gave verbal understanding and had no additional questions or concerns at time of discharge All questions answered Medications: New ciprofloxacin-hydrocortisone 0.2-1 % (Cipro HC) R ear 3 drps otic (ears) BID 7 days 10 mL 0RF Coding Level of Care Code Est Pt Level 3 (04683) Diagnoses Other infective acute otitis externa of right ear H60.391 Otitis externa type: other infective Chronicity: acute Laterality: right
[2024-10-12 11:17] VITALS: BP 122/90; PULSE 82; TEMP 36.8; O2SAT 98
== END 2024-10-12 11:55 | disposition home or self-care (01) ==
PROVIDERS: PCP Physician Assistant; Visit Provider Physician Assistant
DX: H60.391 Other infective otitis externa, right ear (principal)

== ENCOUNTER → 2024-10-12 11:13 | Outpatient (BNVA) | payer OTHER, SELFPAY | PROVIDERS: PCP Physician Assistant | DX: H60.391 Other infective otitis externa, right ear (principal) | CPT/HCPCS: 99212 ==

== ENCOUNTER 2025-01-30 10:08 | Outpatient (AMB) | payer OTHER, SELFPAY ==
[2025-01-30 10:17] VITALS: BP 130/94; PULSE 72; TEMP 36.2; O2SAT 98; BMI 32.0
--- NOTE | 2025-01-30 10:17 | MHC.PC.OV ---
Vital Signs 01/30/25 10:17 Height 5 ft 11 in Weight 229 lb 4 oz BMI 32.0 BP 130/94 H Blood Pressure Location Lt brachial Position Sitting Pulse 72 Pulse Source Pulse Oximeter Temp 97.1 F Temp Source Temporal Artery Scan Pulse Oximetry (%) 98 Oxygen Delivery Method Room Air Intake Visit Reasons: Annual Exam [employer] Process Required: No Accompanied by: Spouse Allergies No Known Allergies [No Known Allergies*] Allergy (Verified 01/30/25 10:50) Medication List - Last Reconciled 01/30/25 by Anmol Hudson PA-C No Known Home Meds Tobacco use date assessed: 01/30/25 Dental Screening Dental Screen Date: 01/30/25 Did you have a dental visit in the last 12 months?: No Did you have a dental problem in the last 6 months where you did not have access to dental care?: No Was dental information given to patient?: Patient has dentist HPI Annual Exam HPI Details Patient is a 34-year-old male here today for annual physical. Patient's past medical history significant for lumbar disc disease, generalized anxiety disorder and obesity. Concern--> has been having posterior right shoulder pain over the last several months. He can not recall an acute injury to his right shoulder. Whenever he raises his arm above his head her tries to lift anything he gets a sharp pain in the posterior aspect of his right shoulder. Class 1 obesity: Have noted his BMI to be above 30, he does understand he is obese and will work on being more physically active and adapting to better eating habits to reduce his weight Vaccines: Up-to-date with tetanus, COVID [facility] Medical History Chronic pain syndrome Herniated nucleus pulposus, L5-S1, left Lumbar spondylosis Surgical History No pertinent past surgical history Family History Father Diabetes High blood pressure Tubular adenoma of colon Mother High blood pressure Social History Housing: Apartment Alcohol intake: current Alcohol intake frequency: holidays/special occasions only Alcohol type: beer Patient Tobacco Use Status: Former Tobacco user e-Cigarette/Vaping Use: Never Used Second Hand Smoke Exposure: No Substance Use Type: Marijuana service: No Current occupational status: employed 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 1. Little interest or pleasure in doing things: not at all 2. Feeling down, depressed, or hopeless: not at all 3. Trouble falling or staying asleep, or sleeping too much: not at all 4. Feeling tired or having little energy: not at all 5. Poor appetite or overeating: not at all 6. Feeling bad about yourself - or that you are a failure or have let yourself or your family down: not at all 7. Trouble concentrating on things, such as reading the newspaper or watching television: not at all 8. Moving or speaking so slowly that other people could have noticed. Or the opposite - being so fidgety or restless that you have been moving around a lot more than usual: not at all 9. Thoughts that you would be better off or of hurting yourself in some way: not at all Total score: 0 Depression Screening Interpretation: Negative Depression Screening Done: Yes 85231 - PHQ-9 Billing: Yes Source: Developed by Drs. Leonardo Rutledge, Constance Lynch, Andrea Watters and colleagues, with an educational saturnino from [employer]. Thrive Questionnaire Date Thrive assessed: 01/30/25 I am a: Patient What is your living situation today?: I choose not to answer this question Within the past 12 months, did the food you bought not last and you didn't have the money to get more?: I choose not to answer this question Within the past 12 months, did you worry whether your food would run out before you got money to buy more?: I choose not to answer this question Do you have trouble paying for medicines?: No Do you have trouble getting transportation to medical appointments?: No Do you have trouble paying your heating and electricity bill?: No Do you have trouble taking care of your child, family member or friend?: I choose not to answer this question Do you have trouble with day-to-day activities such as bathing, preparing meals, shopping, managing finances, etc.?: No Are you currently unemployed and looking for a job?: No Are you interested in more education?: I choose not to answer this question Please select the resources that you would like help with: None Currently or been in a relationship where the following occur: I choose not to answer THRIVE Score: 0 AUDIT C Alcohol Use Questionnaire (AUDIT-C) 1. How often do you have a drink containing alcohol?: 2-3 times a week 2. How many drinks containing alcohol do you have on a typical day when you are drinking?: 1 or 2 3. How often do you have six or more drinks on one occasion?: Never Total Score: 3 CORETTA-7 AMB Questionnaire CORETTA-7 Date CORETTA - 7 assessed: 01/30/25 Feeling nervous, anxious, or on edge: 1 = Several days Not being able to stop or control worryin = Not at all Worrying too much about different things: 1 = Several days Trouble relaxin = Not at all Being so restless that it is hard to sit still: 0 = Not at all Becoming easily annoyed or irritable: 1 = Several days Feeling afraid as if something awful might happen: 0 = Not at all Total CORETTA-7 score (0-4 normal; 5-9 mild; 10-14 moderate; 15-21 severe): 3 Source: Developed by Drs. Leonardo Rutledge, Constance Lynch, Andrea Watters and colleagues, with an educational saturnino from [employer]. CORETTA-7 Assessment Billing CORETTA-7 Assessment Tool: CORETTA-7 Assessment 69633 Review of Systems Const Denies excessive sweating, Denies fatigue and Denies headache(s) Eyes Denies loss of vision ENT Denies vertigo, Denies dizziness, Denies headache(s) and Denies sore throat Card Denies chest pain, Denies leg edema and Denies lightheadedness Resp Denies cough, Denies hemoptysis and Denies wheezing GI Denies abdominal pain, Denies melena, Denies constipation, Denies diarrhea and Denies vomiting Denies dysuria, Denies urinary frequency and Denies urinary urgency Musc Denies arthralgias, Denies joint swelling, Denies numbness and Denies tingling Skin/Breast Denies rash and Denies skin ulcer Neuro Denies Abnormal speech present, Denies behavioral changes, Denies vertigo, Denies dizziness, Denies headache(s), Denies loss of vision, Denies memory loss, Denies numbness and Denies tingling Psych Denies anxiety, Denies behavioral changes, Denies depression, Denies memory loss and Denies panic attacks Endo Denies excessive sweating, Denies fatigue, Denies flushing, Denies polydipsia and Denies polyuria Romeo/Lymph Denies easy bleeding and Denies easy bruising Aller/Immun Denies wheezing Physical exam (Primary Care) Vital Signs: Last Vital Signs Temp 97.1 F 01/30/25 10:17 Pulse 72 01/30/25 10:17 BP 130/94 H 01/30/25 10:17 Pulse Ox 98 01/30/25 10:17 Oxygen Delivery Method Room Air 01/30/25 10:17 BMI result Body Mass Index 32.0 BMI Assessment/Plan discussion: High BMI High, discussed plan: lifestyle, weight reduction, dietary and physical activity Tobacco/Smoking Status: Tobacco use Status Tobacco use date assessed 01/30/25 01/30/25 10:27 Patient Tobacco Use Status Former Tobacco user 01/30/25 10:27 e-Cigarette/Vaping Use Never Used 01/30/25 10:27 PHQ-9: PHQ-9 Score PHQ-9: Total score 0 01/30/25 10:53 Depression Screening Interpretation: Negative Thrive Assessment: Date of Thrive Assessment Date Thrive assessed 01/30/25 01/30/25 10:27 Currently or been in a relationship where the following occur: I choose not to answer Const General: healthy appearing, no acute distress, alert and awake Nutritional Appearance: well nourished Orientation/consciousness: oriented to person, oriented to place and oriented to time [facility] Head: Yes normocephalic Ears: TM's normal bilaterally General nose exam: Normal nasal mucous membranes and turbinates present Face and sinus: No sinus tenderness Mouth: Normal oral and palatal mucosa present and tongue normal Teeth and gingiva: dentition normal and gingiva normal Throat: Yes posterior oropharynx normal, Yes tonsils normal and Yes uvula midline Eyes Conjunctivae: conjunctivae normal Sclerae: sclerae normal Pupils: Equal, round and reactive pupils present EOM: EOMs intact bilaterally Direct Ophthalmoscopy: No no photophobia Neck Neck: Yes no lymphadenopathy and Yes no JVD Thyroid: Thyroid normal Carotids: no bruits Chest Chest palpation & inspection: no tenderness Resp Effort & Inspection: normal respiratory effort and not tachypneic Auscultation: no crackles, no rales, no rhonchi and no wheezes Cardio Jugular venous distension: no JVD Rate: regular rate Rhythm: regular rhythm Heart sounds: no murmurs and normal S1 and S2 Bruits: no carotid bruits Peripheral pulses: Peripheral pulses 2+ throughout GI Inspection: Yes normal to inspection, No abdominal wall ecchymosis and No visible herniation Palpation (GI): Soft to palpation, nontender, no hepatomegaly and no splenomegaly Auscultation: normal bowel sounds General: Yes no CVA tenderness Back/Spine/Pelvis Back: no CVA tenderness and No back tenderness Cervical Spine: cervical ROM normal Thoracic/Lumbar Spine: thoracic and lumbar spine normal to inspection, straight leg raise negative bilaterally, No thoraco-lumbar ROM limited and No lumbar spinal tenderness Skin General skin exam: no rashes or lesions noted and dry skin Lesions: no lesions Rashes: no rashes Wounds: no wounds Neuro General: oriented to person, oriented to place and oriented to time Cranial nerves: Yes Equal, round and reactive pupils present Cognition (Neuro): normal cognition Speech: No Abnormal speech present Gait exam (Neuro): Normal gait present Motor exam (neuro): no tremor noted Extrem Other: RIGHT SHOULDER WITH SOME LIMITATION TO HIS RANGE OF MOTION, PAIN LOCATED JUST ABOVE THE SCAPULA AND TRAPEZIUS AREA OF HIS RIGHT UPPER BACK. Right upper extremity: full ROM Left upper extremity: full ROM Right lower extremity: full ROM; no edema Left lower extremity: full ROM; no edema Psych Appearance: grossly normal Mental Status: mental status grossly normal Speech and movement: Normal speech and movement present Affect: normal affect Attitude: cooperative Thought process: Normal thought process present Coding Level of Care Code Est Pt Prev Care 18-39y([id number]) Diagnoses Annual physical exam Z00.00 Right shoulder tendonitis M77.8 Class 1 obesity E66.811 Additional Codes CORETTA-7 Assessment Billing - CORETTA-7 Assessment Tool: CORETTA-7 Assessment [id number] ([id number]) PHQ-9 - 67665 - PHQ-9 Billing: Yes ([id number]) Assessment & Plan Assessment & Plan (1) Annual physical exam: Code(s): Z00.00 - Encounter for general adult medical examination without abnormal findings Category: Medical Plan: As per HPI (2) Right shoulder tendonitis: Code(s): M77.8 - Other enthesopathies, not elsewhere classified Category: Medical Plan: Patient with chronic right shoulder posterior her pain. Concerns here for SLAP tear of the right shoulder. Will try for MRI to evaluate for rotator cuff tear. (3) Class 1 obesity: Code(s): E66.811 - Obesity, class 1 Category: Medical Plan: Patient does understand his BMI is over 30 will work on being more physically active and adapting to better eating habits to reduce his weight Orders: Orders Comprehensive [place]. Panel Fast Today Z13.1 - Encounter for screening for diabetes mellitus Complete Blood Count no Diff Today Z13.1 - Encounter for screening for diabetes mellitus PT Evaluation and Treatment Today M77.8 - Other enthesopathies, not elsewhere classified MR shoulder RT wo con Today S43.431A - Superior glenoid labrum lesion of right shoulder, initial encounter Medications: New cyclobenzaprine 10 mg PO BID 20 tabs 0RF 10 days M77.8 - Other enthesopathies, not elsewhere classified
== END 2025-01-30 11:08 | disposition home or self-care (01) ==
LOC: HO.HMCH 10:08
PROVIDERS: PCP Physician Assistant; Visit Provider Physician Assistant
DX: Z00.00 Encounter for general adult medical examination without abnormal findings (principal); M77.8 Other enthesopathies, not elsewhere classified; E66.811 Obesity, class 1; Z68.32 Body mass index [BMI] 32.0-32.9, adult

== ENCOUNTER → 2025-01-30 10:08 | Outpatient (BNVA) | payer OTHER, SELFPAY | PROVIDERS: PCP Physician Assistant; Visit Provider Physician Assistant | DX: Z00.00 Encounter for general adult medical examination without abnormal findings (principal); M77.8 Other enthesopathies, not elsewhere classified; E66.811 Obesity, class 1; Z68.32 Body mass index [BMI] 32.0-32.9, adult; Z13.31 Encounter for screening for depression; Z13.30 Encounter for screening examination for mental health and behavioral disorders, unspecified | CPT/HCPCS: 96127; 99395 ==